=== PATIENT | male | born 1960 | race Caucasian/White ===

== ENCOUNTER 2017-12-25 08:14 | Inpatient (IN) | payer BC ==
[~2017-12-25] VITALS: Ht 172.7 cm; Wt 91.9 kg
[2017-12-25] MEDS ORDERED: SODIUM CHLORIDE 0.9% 1000ML 1,000 ML IV STA (08:40)
[2017-12-25] MEDS ORDERED: ONDANSETRON INJ 2 MG/ML 2 ML VIAL IV STA (08:45)
[2017-12-25] MEDS ORDERED: MoRPHine SULFATE 4 MG/ML 1 ML CARP\\VIAL IV STA (08:45)
[2017-12-25 09:07] LABS: BASO % 0.1 %; BASO ABS # 0.01 K/uL (0-0.2); EOS % 0.7 %; EOS ABS # 0.06 K/uL (0-0.5); HEMATOCRIT 43.4 % (42-52); IG# 0.02 K/uL (0.00-0.02); LYMPH % 16.4 %; LYMPH ABS # 1.43 K/uL (1.2-3.4); MEAN CELL VOLUME 96.2 fL (80-100); MEAN CORPUSCULAR HEMOGLOBIN 33.3 pg (25-34); MEAN CORPUSCULAR HGB CONC 34.6 g/dl (32-36); MEAN PLATELET VOLUME 9.5 fL (7.4-10.4); MONO % 9.6 %; MONO ABS # 0.84 K/uL (0.11-0.59); NEUT ABS # 6.38 K/uL (1.4-6.5); PLATELET COUNT 225 K/uL (130-400); RED CELL DISTRIBUTION WIDTH CV 13.4 % (11.5-14.5); RED CELL DISTRIBUTION WIDTH SD 47.1 fL (36.4-46.3); WHITE BLOOD COUNT 8.74 K/uL (4.8-10.8)
[2017-12-25] MEDS ORDERED: CEPH500C PO (09:07)
[2017-12-25] MEDS ORDERED: SULF800T23 PO (09:07)
--- NOTE | 2017-12-25 09:13 | DIAGNOSTIC IMAGING REPORT ---
L HAND MIN 3 VIEWS ROUTINE HISTORY: 57 years-old Male L hand pain acute left hand pain COMPARISON: None available TECHNIQUE: 3 views of the left hand FINDINGS: No acute fracture, dislocation or significant degenerative changes. Peripheral arterial calcifications are noted. Mild dorsal hand soft tissue swelling. IMPRESSION: Mild soft tissue swelling without fracture. The above report was generated using voice recognition software. It may contain grammatical, syntax or spelling errors. Electronically signed by: Fernando Curiel M.D. 12/25/2017 9:12 AM Dictated Date/Time: 12/25/2017 9:10 AM
[2017-12-25 09:23] LABS: CALCIUM 8.1 mg/dl (8.5-10.1); CREATININE 1.03 mg/dl (0.60-1.40); URIC ACID 5.1 mg/dl (2.6-7.2)
--- NOTE | 2017-12-25 09:27 | EMERGENCY ROOM VISIT NOTE ---
History First contact with patient: 08:27 Chief Complaint: SWELLING TO EXTREMITY Stated Complaint: LEFT HAND SWELL History of Present Illness The patient is a 57 year old male who presents to the Emergency Room via private vehicle with complaints of "left hand pain and swelling swelling". The patient notes that he began with left hand swelling on Friday. He states that he went to an [facility] doctor in [facility] and was put on Keflex on Friday, Bactrim yesterday. He notes no improvement in worsening. He states that the redness began about the left first MCP joint and is progressed up the hand to the wrist and down to the forearm. He denies any trauma or injury. He does subjectively report fevers and chills. No nausea, vomiting, shortness of breath, chest pain or abdominal pain. Review of Systems A complete 10-point Review of Systems was discussed with the patient, with pertinent positives and negatives listed in the History of Present Illness. All remaining Review of Systems questions can be considered negative unless otherwise specified. Past Medical/Surgical History Medical Problems: (1) Alcohol abuse (2) Gout (3) HLD (hyperlipidemia) (4) HTN (hypertension) (5) Obesity (BMI 30.0-34.9) Surgical Problems: (1) History of decompression of both ulnar nerves (2) History of right inguinal hernia repair (3) History of tonsillectomy and adenoidectomy Family History No pertinent. Social History Smoking Status: Never Smoker Patient lives locally. Current/Historical Medications Scheduled Cephalexin Monohydrate (Keflex), 500 MG PO TID Sulfa/Trimethoprim (Bactrim Ds 800MG/160MG), 1 TAB PO BID Scheduled PRN Indomethacin (Indomethacin), 50 MG PO TID PRN for xander Physical Exam Vital Signs Date Time Temp Pulse Resp B/P (MAP) Pulse Ox O2 Delivery O2 Flow Rate FiO2 12/25/17 10:08 79 18 155/97 97 Room Air 12/25/17 10:00 97 Room Air 12/25/17 09:43 79 18 166/110 98 Room Air 12/25/17 08:19 36.4 74 20 162/92 98 Room Air Physical Exam VITAL SIGNS - Vital signs and nursing notes were reviewed. Stable and afebrile. GENERAL -57-year-old male appearing his stated age who is in no acute distress. Communicates well with provider and answers questions appropriately. SKIN -the left first MCP joint skin extending to the distal tip of the finger and up the forearm does elicit erythema and edema. HEAD - NC/AT. LUNGS - Chest wall symmetric without accessory muscle use, intercostals retractions, or central cyanosis. Normal vesicular breath sounds CTA B/L. No wheezes, rales, or rhonchi appreciated. CARDIAC - RRR with S1/S2. No murmur, rubs, or gallops appreciated. EXTREMITIES - No clubbing or peripheral cyanosis. No pretibial edema present. Decreased range of motion about the left first MCP joint. There is tenderness to palpation of this region. No bony deformity or step-off. +5/5 strength noted in UE/LE bilaterally. NEUROLOGIC - Cranial nerves II through XII grossly intact. Sensory intact to light touch throughout. He is neurovascularly intact in left upper extremity. Medical Decision & Procedures ER Provider Diagnostic Interpretation: L HAND MIN 3 VIEWS ROUTINE HISTORY: 57 years-old Male L hand pain acute left hand pain COMPARISON: None available TECHNIQUE: 3 views of the left hand FINDINGS: No acute fracture, dislocation or significant degenerative changes. Peripheral arterial calcifications are noted. Mild dorsal hand soft tissue swelling. IMPRESSION: Mild soft tissue swelling without fracture. The above report was generated using voice recognition software. It may contain grammatical, syntax or spelling errors. Electronically signed by: Fernando Curiel M.D. 12/25/2017 9:12 AM Dictated Date/Time: 12/25/2017 9:10 AM [~ rep ct add3]] ORBITS FOR MRI HISTORY: 57 years-old Male to have MRI today for hand acute left hand swelling. Clearance study for MRI with possible intraorbital metallic foreign body COMPARISON: None available TECHNIQUE: 3 views of the orbits FINDINGS: Paranasal sinuses and mastoid air cells appear generally clear. No opaque foreign body of the orbits identified. No acute fracture identified. IMPRESSION: No opaque foreign body of the orbits identified. The above report was generated using voice recognition software. It may contain grammatical, syntax or spelling errors. Electronically signed by: Fernando Curiel M.D. 12/25/2017 11:46 AM Dictated Date/Time: 12/25/2017 11:45 AM Laboratory Results 12/25/17 08:50 Red Blood Count 4.51, Mean Corpuscular Volume 96.2, Mean Corpuscular Hemoglobin 33.3, Mean Corpuscular Hemoglobin Concent 34.6, Mean Platelet Volume 9.5, Neutrophils (%) (Auto) 73.0, Lymphocytes (%) (Auto) 16.4, Monocytes (%) (Auto) 9.6, Eosinophils (%) (Auto) 0.7, Basophils (%) (Auto) 0.1, Neutrophils # (Auto) 6.38, Lymphocytes # (Auto) 1.43, Monocytes # (Auto) 0.84, Eosinophils # (Auto) 0.06, Basophils # (Auto) 0.01 12/25/17 08:50 Test 12/25/17 08:50 White Blood Count 8.74 K/uL (4.8-10.8) Red Blood Count 4.51 M/uL (4.7-6.1) Hemoglobin 15.0 g/dL (14.0-18.0) Hematocrit 43.4 % (42-52) Mean Corpuscular Volume 96.2 fL (80-100) Mean Corpuscular Hemoglobin 33.3 pg (25-34) Mean Corpuscular Hemoglobin Concent 34.6 g/dl (32-36) Platelet Count 225 K/uL (130-400) Mean Platelet Volume 9.5 fL (7.4-10.4) Neutrophils (%) (Auto) 73.0 % Lymphocytes (%) (Auto) 16.4 % Monocytes (%) (Auto) 9.6 % Eosinophils (%) (Auto) 0.7 % Basophils (%) (Auto) 0.1 % Neutrophils # (Auto) 6.38 K/uL (1.4-6.5) Lymphocytes # (Auto) 1.43 K/uL (1.2-3.4) Monocytes # (Auto) 0.84 K/uL (0.11-0.59) Eosinophils # (Auto) 0.06 K/uL (0-0.5) Basophils # (Auto) 0.01 K/uL (0-0.2) RDW Standard Deviation 47.1 fL (36.4-46.3) RDW Coefficient of Variation 13.4 % (11.5-14.5) Immature Granulocyte % (Auto) 0.2 % Immature Granulocyte # (Auto) 0.02 K/uL (0.00-0.02) Erythrocyte Sedimentation Rate 22 mm/hr (0-14) Anion Gap 8.0 mmol/L (3-11) Est Creatinine Clear Calc Drug Dose 85.3 ml/min Estimated GFR () 92.4 Estimated GFR (Non- 79.7 BUN/Creatinine Ratio 11.3 (10-20) Lactic Acid Level 1.1 mmol/L (0.4-2.0) Uric Acid 5.1 mg/dl (2.6-7.2) Calcium Level 8.1 mg/dl (8.5-10.1) C-Reactive Protein 5.32 mg/dl (0-0.29) Medications Administered Medications (Trade) Dose Ordered Sig/New Route Start Time Stop Time Status Last Admin Dose Admin Sodium Chloride 1,000 ml @ 999 mls/hr Q1H1M STAT IV 12/25/17 08:40 12/25/17 09:53 DC 12/25/17 09:02 999 MLS/HR Morphine Sulfate (MoRPHine SULFATE INJ) 4 mg NOW STAT IV 12/25/17 08:45 12/25/17 08:46 DC 12/25/17 09:03 4 MG Ondansetron HCl (Zofran Inj) 4 mg NOW STAT IV 12/25/17 08:45 12/25/17 08:46 DC 12/25/17 09:02 4 MG Vancomycin HCl 1750 mg/Sodium Chloride 535 ml @ 200 mls/hr ONE STAT IV 12/25/17 09:54 12/25/17 12:34 DC 12/25/17 10:39 200 MLS/HR Ceftriaxone Sodium (Rocephin Inj) 1 gm NOW STAT IV 12/25/17 09:54 12/25/17 09:56 DC 12/25/17 10:08 1 GM Medical Decision Patient was seen and evaluated as above in room a 12. Review was performed of nursing notes and vital signs. After obtaining a thorough history and physical examination the above work up was performed. He presents to us today with hand pain. There is swelling. It is progressing up his hand and now into his wrist. There is concern for failed outpatient oral antibiotics with progressive cellulitis. IV access was established. Blood cultures obtained. Rocephin and vancomycin were ordered. X-ray reveals swelling. No fracture. No leukocytosis. Clinically there is concern and need for IV antibiotics. Case discussed with the attending physician and subsequently the hospitalist. I also discussed this with orthopedics who recommended MRI. MRI ordered. Patient was educated upon findings and in agreement with hospitalization. Case was discussed with the attending physician. In the evaluation and treatment of this patient the following differential diagnoses were entertained: Cellulitis, abscess, gout, among others Impression Primary Impression: Cellulitis of left hand Departure Information Dispostion Admitted as an inpatient Condition FAIR Referrals No Doctor, Assigned (PCP) Patient Instructions My [facility]
[2017-12-25] MEDS ORDERED: VANCOMYCIN IV 1,750 MG in SODIUM CHLORIDE 0.9% 500ML 500 ML IV STA (09:54)
[2017-12-25] MEDS ORDERED: CEFTRIAXONE SOD INJ 1 GM ADDVIAL IV STA (09:54)
[2017-12-25 10:00] VITALS: O2SAT 97; Ht 172.7 cm; Wt 91.9 kg
[2017-12-25] MEDS ORDERED: VANCOMYCIN CONSULT ACTIVE PRN ×2 (10:00→10:30)
[2017-12-25] MEDS ORDERED: ACETAMINOPHEN 325 MG TAB PO PRN (10:15)
[2017-12-25] MEDS ORDERED: INDO1CAP34 PO (10:22)
[2017-12-25] MEDS ORDERED: LORAZEPAM 2 MG/ML 1 ML VIAL IV PRN (10:30)
[2017-12-25] MEDS ORDERED: MoRPHine SULFATE 2 MG/ML CARP IV PRN (10:30)
[2017-12-25] MEDS ORDERED: IV FLUIDS COMPLETED PRN (11:30)
--- NOTE | 2017-12-25 11:48 | DIAGNOSTIC IMAGING REPORT ---
ORBITS FOR MRI HISTORY: 57 years-old Male to have MRI today for hand acute left hand swelling. Clearance study for MRI with possible intraorbital metallic foreign body COMPARISON: None available TECHNIQUE: 3 views of the orbits FINDINGS: Paranasal sinuses and mastoid air cells appear generally clear. No opaque foreign body of the orbits identified. No acute fracture identified. IMPRESSION: No opaque foreign body of the orbits identified. The above report was generated using voice recognition software. It may contain grammatical, syntax or spelling errors. Electronically signed by: Fernando Curiel M.D. 12/25/2017 11:46 AM Dictated Date/Time: 12/25/2017 11:45 AM
[2017-12-25 11:53] VITALS: BP 171/94; PULSE 79; TEMP 36.6; O2SAT 93
--- NOTE | 2017-12-25 11:54 | Orthopedic Consultation ---
Orthopedic Consultation Date of Consultation: Dec 25, 2017. Attending Physician: Reason for Consultation: Left hand cellulitis with question of second MP joint infection. History of Present Illness Patient is a 57-year-old white male known to our practice who states that on Friday he began having pain in his left hand mainly around the second MP joint. The pain began to increase and he went to [facility] as an outpatient. He was started on Keflex and as it continued to worsen and he went to the [place] emergency room of which she was then started on Bactrim as well. Neither of these antibiotics seem to be helping him as he continued to worsen. He states that the redness started to go up his wrist and into his forearm and he came over here to be seen. He states he is having difficulty moving the index finger because of pain in the joint. He states that he had chills last night but no nausea or vomiting. He denies any shortness of breath or chest pain prior to this visit. Past Medical/Surgical History Past medical history: Patient denies any history of hypertension ,diabetes mellitus, tuberculosis, hepatitis, COPD, rheumatic fever, dvt Past surgical history: Irrigation and debridement right hand in 2003, appendectomy, herniorrhaphy, ulnar nerve transposition Family History FH: CAD (coronary artery disease) FATHER, BROTHER, , Age:50's - 60 ( of [place]) FH: cancer FATHER, Social History Smoking Status: Never Smoker Allergies Coded Allergies: No Known Allergies (Verified , 12/25/17) Home Medications Scheduled Cephalexin Monohydrate (Keflex), 500 MG PO TID Sulfa/Trimethoprim (Bactrim Ds 800MG/160MG), 1 TAB PO BID Scheduled PRN Indomethacin (Indomethacin), 50 MG PO TID PRN for xander Current Inpatient Medications Current Inpatient Medications Medications (Trade) Dose Ordered Sig/New Route Start Time Stop Time Status Last Admin Dose Admin Vancomycin HCl 1750 mg/Sodium Chloride 535 ml @ 200 mls/hr ONE STAT IV 12/25/17 09:54 12/25/17 12:34 12/25/17 10:39 200 MLS/HR Acetaminophen (Tylenol Tab) 650 mg Q4H PRN PO 12/25/17 10:15 01/24/18 10:14 Ceftriaxone Sodium 1 gm/ Dextrose 50 ml @ 100 mls/hr Q24H IV 12/26/17 10:00 01/05/18 09:59 UNV Vancomycin HCl 1000 mg/Sodium Chloride 270 ml @ 125 mls/hr Q12 IV 12/25/17 21:00 01/04/18 20:59 UNV Vancomycin HCl (Consult) 1 ea UD PRN N/A 12/25/17 10:30 01/24/18 10:29 UNV Morphine Sulfate (MoRPHine SULFATE INJ) 2 mg Q4H PRN IV 12/25/17 10:30 01/08/18 10:29 UNV Lorazepam (Ativan Inj) 1 mg ONE PRN IV 12/25/17 10:30 UNV Miscellaneous (Iv Fluids Completed) 1 ea PRN PRN N/A 12/25/17 11:30 12/25/18 11:29 UNV Review of Systems No changes with his vision or his hearing the recent past. Denies lightheadedness, vertigo. Denies any flulike symptoms or colds in the recent past. Denies shortness of breath on exertion or at rest, denies chest pain, chest pressure, irregular heartbeat. Patient does have a family history of cardiac disease with a brother who at the age of 50 due to myocardial infarction. Father had a history of multiple MIs in the past as well. Denies hemoptysis, dyspnea, asthma ,bronchitis, tuberculosis. Denies any unusual nausea vomiting diarrhea, constipation, hematemesis, melena, hematochezia, hepatitis, GERD, peptic ulcer disease. No abdominal pain. Denies any history of unusual hematuria ,pyuria ,dysuria, or renal calculi. Denies history of frequency, urgency, frequent urinary tract infection, BPH. Denies history of CVA, TIA, seizure disorder. Physical Exam Date Time Temp Pulse Resp B/P (MAP) Pulse Ox O2 Delivery O2 Flow Rate FiO2 12/25/17 10:08 79 18 155/97 97 Room Air 12/25/17 10:00 97 Room Air 12/25/17 09:43 79 18 166/110 98 Room Air 12/25/17 08:19 36.4 74 20 162/92 98 Room Air On examination, the patient is a well-developed, well-nourished, white male who is alert and oriented 3 and in no acute distress, pleasant and cooperative. He is lying on the bed in his room and appears comfortable. Focusing the exam on his left lower extremity, he has a noted erythema over the dorsum of his hand. Less so over the fifth metacarpal area however it begins to increase as it crosses over to the first metacarpal. This erythema goes up to the wrist and is going into the dorsum of the forearm. He has good range of motion of his left elbow and left wrist without discomfort in either of these joints. When he flexes his wrist, he does have some discomfort around the second metacarpal area. He has moderate swelling of the second MPJ. Erythema does travel down into the index finger somewhat. He has no decreased sensation of the fingers at this time and has good capillary refill less than 2 seconds. He pretty much has full range of motion of his third through fifth fingers and his thumb. He has very limited range of motion in extension and flexion of the index finger due to pain in the MPJ. He is very tender on palpation over the second MPJ. I cannot appreciate any fluctuance in or around this area. Most of his pain is over the dorsum of the joint but he does have some pain on the volar aspect. No overt pain in the palm itself. Laboratory Results Last 24 Hours Test 12/25/17 08:50 White Blood Count 8.74 K/uL Red Blood Count 4.51 M/uL Hemoglobin 15.0 g/dL Hematocrit 43.4 % Mean Corpuscular Volume 96.2 fL Mean Corpuscular Hemoglobin 33.3 pg Mean Corpuscular Hemoglobin Concent 34.6 g/dl Platelet Count 225 K/uL Mean Platelet Volume 9.5 fL Neutrophils (%) (Auto) 73.0 % Lymphocytes (%) (Auto) 16.4 % Monocytes (%) (Auto) 9.6 % Eosinophils (%) (Auto) 0.7 % Basophils (%) (Auto) 0.1 % Neutrophils # (Auto) 6.38 K/uL Lymphocytes # (Auto) 1.43 K/uL Monocytes # (Auto) 0.84 K/uL Eosinophils # (Auto) 0.06 K/uL Basophils # (Auto) 0.01 K/uL RDW Standard Deviation 47.1 fL RDW Coefficient of Variation 13.4 % Immature Granulocyte % (Auto) 0.2 % Immature Granulocyte # (Auto) 0.02 K/uL Erythrocyte Sedimentation Rate 22 mm/hr Sodium Level 138 mmol/L Potassium Level 4.0 mmol/L Chloride Level 106 mmol/L Carbon Dioxide Level 23 mmol/L Anion Gap 8.0 mmol/L Blood Urea Nitrogen 12 mg/dl Creatinine 1.03 mg/dl Est Creatinine Clear Calc Drug Dose 85.3 ml/min Estimated GFR () 92.4 Estimated GFR (Non- 79.7 BUN/Creatinine Ratio 11.3 Random Glucose 100 mg/dl Lactic Acid Level 1.1 mmol/L Uric Acid 5.1 mg/dl Calcium Level 8.1 mg/dl C-Reactive Protein 5.32 mg/dl Assessment & Plan Assessment: Cellulitis left hand with question of septic left second MPJ Plan: Patient will be admitted by [facility] service. Antibiotics will be continued 24 hours and an MRI has been ordered to rule out septic joint in the second left MPJ. I will tentatively add him onto the OR schedule for tomorrow if irrigation debridement is warranted. Patient understands that this might need to be washed out and states that he just wants to get it taken care of. He has had a previous I&D of the right hand and understands what comes with that. Dr. Hayes is aware of the case and will follow accordingly.
--- NOTE | 2017-12-25 12:31 | History and Physical ---
History & Physical Date & Time of Service: Dec 25, 2017 at 11:07 Chief Complaint: Left Hand Swell Primary Care Physician: No Doctor, Assigned History of Present Illness Source: patient, spouse This is a 57 year old Male with PMH of HLD, HTN, GOUT, ETOH Abuse who presents to [facility] secondary to L hand/finger pain, redness and increased swelling x 3 days. Symptoms started on Friday12/22/17 with redness to Left 2nd MCP joint, pain and warmth. Was unable to get into PCP therefore took indomethacin, "thought it was gout," but this did not help. On 12/23/17 saw PCP and dx with cellulitis, placed on Keflex. WBC at this time was 13.3. Due to worsening of symptoms he presented to [place] ED for further evaluation on 12/24/17. At that time WBC 11.2, left hand x-ray performed negative for acute abnormality. He was additionally placed on Bactrim for MRSA coverage and discharged home. Today he notes increased swelling, increased erythema, warmth, pain, decreased range of motion of left second digit. He has taken 6 doses of Keflex 500 mg, 2 doses of double strength Bactrim. He has not taking anything [id number] for pain except prescribed indomethacin with no relief. Current pain rated 6 out of 10; however pain this morning was 9/10. He admits to chills last evening but no documented fever and nausea. Currently denies sweats, dizziness, lightheadedness, chest pain, shortness of breath, palpitations, nausea, vomiting , emesis, diarrhea, change in bowel or bladder habits. In ED patient's WBC was noted to be normal at 8.7, H&H 15 and 43.4 respectively, uric acid 5.1, ESR 22, CRP 5.32, BUN 12, creatinine 1.3, sodium 138, potassium 4.0. Left upper extremity hand x-ray revealed soft tissue swelling. He is being admitted secondary to failed outpatient therapy as well as further evaluation and treatment of left hand cellulitis. Past Medical/Surgical History Medical Problems: (1) Alcohol abuse Status: Chronic (2) Gout Status: Chronic (3) HLD (hyperlipidemia) Status: Chronic (4) HTN (hypertension) Status: Chronic (5) Obesity (BMI 30.0-34.9) Status: Chronic Surgical Problems: (1) History of decompression of both ulnar nerves Status: Chronic (2) History of right inguinal hernia repair Status: Chronic (3) History of tonsillectomy and adenoidectomy Status: Chronic Family History FH: CAD (coronary artery disease) FATHER, BROTHER, , Age:50's - 60 ( of [place]) FH: cancer FATHER, Social History Smoking Status: Never Smoker Smokeless Tobacco Use: No Alcohol Use: heavy (5-6 12 oz bottles of marck lite daily) Drug Use: none Marital Status: Housing status: lives with significant other 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) Immunizations History of Influenza Vaccine: Yes Influenza Vaccine Date: Jan 16, 2015 History of Tetanus Vaccine?: Yes Tetanus Immunization Date: Jan 05, 2004 History of Pneumococcal: No History of Hepatitis B Vaccine: Unknown Allergies Coded Allergies: No Known Allergies (Verified , 12/25/17) Home Medications Scheduled Cephalexin Monohydrate (Keflex), 500 MG PO TID Sulfa/Trimethoprim (Bactrim Ds 800MG/160MG), 1 TAB PO BID Scheduled PRN Indomethacin (Indomethacin), 50 MG PO TID PRN for xadner Physical Exam Vital Signs Date Time Temp Pulse Resp B/P (MAP) Pulse Ox O2 Delivery O2 Flow Rate FiO2 12/25/17 10:08 79 18 155/97 97 Room Air 12/25/17 10:00 97 Room Air 12/25/17 09:43 79 18 166/110 98 Room Air 12/25/17 08:19 36.4 74 20 162/92 98 Room Air General Appearance: WD/WN (Male, Sitting up in bed, conversing at ease), no apparent distress Head: normocephalic, atraumatic Eyes: normal inspection, PERRL, EOMI, sclerae normal ENT: normal ENT inspection, hearing grossly normal, pharynx normal, + pertinent finding (Mucous membranes moist) Neck: supple, no adenopathy, thyroid normal, no JVD Respiratory/Chest: chest non-tender, lungs clear, normal breath sounds, no respiratory distress, no accessory muscle use Cardiovascular: regular rate, rhythm, no edema, no gallop, no murmur, normal peripheral pulses Abdomen/GI: normal bowel sounds, non tender, soft, no organomegaly Back: normal inspection, no muscle spasm, normal range of motion Extremities/Musculoskelatal: + pertinent finding (Positive erythema and edema on dorsal aspect of left second MCP extending proximally above wrist, well- demarcated, good R OM of left second DIP and PIP; however reduced ROM significantly to MCP. Good AROM of left wrist, no proximal lymphadenopathy, no obvious point of insertion/abraison) Neurologic/Psych: alert, normal mood/affect, oriented x 3 Skin: normal color, warm/dry Lymphatic: no adenopathy Diagnostics Laboratory Results Results Past 24 Hours Test 12/25/17 08:50 Range/Units White Blood Count 8.74 4.8-10.8 K/uL Red Blood Count 4.51 4.7-6.1 M/uL Hemoglobin 15.0 14.0-18.0 g/dL Hematocrit 43.4 42-52 % Mean Corpuscular Volume 96.2 80-100 fL Mean Corpuscular Hemoglobin 33.3 25-34 pg Mean Corpuscular Hemoglobin Concent 34.6 32-36 g/dl Platelet Count 225 130-400 K/uL Mean Platelet Volume 9.5 7.4-10.4 fL Neutrophils (%) (Auto) 73.0 % Lymphocytes (%) (Auto) 16.4 % Monocytes (%) (Auto) 9.6 % Eosinophils (%) (Auto) 0.7 % Basophils (%) (Auto) 0.1 % Neutrophils # (Auto) 6.38 1.4-6.5 K/uL Lymphocytes # (Auto) 1.43 1.2-3.4 K/uL Monocytes # (Auto) 0.84 0.11-0.59 K/uL Eosinophils # (Auto) 0.06 0-0.5 K/uL Basophils # (Auto) 0.01 0-0.2 K/uL RDW Standard Deviation 47.1 36.4-46.3 fL RDW Coefficient of Variation 13.4 11.5-14.5 % Immature Granulocyte % (Auto) 0.2 % Immature Granulocyte # (Auto) 0.02 0.00-0.02 K/uL Erythrocyte Sedimentation Rate 22 0-14 mm/hr Sodium Level 138 136-145 mmol/L Potassium Level 4.0 3.5-5.1 mmol/L Chloride Level 106 98-107 mmol/L Carbon Dioxide Level 23 21-32 mmol/L Anion Gap 8.0 3-11 mmol/L Blood Urea Nitrogen 12 7-18 mg/dl Creatinine 1.03 0.60-1.40 mg/dl Est Creatinine Clear Calc Drug Dose 85.3 ml/min Estimated GFR () 92.4 Estimated GFR (Non- 79.7 BUN/Creatinine Ratio 11.3 10-20 Random Glucose 100 70-99 mg/dl Lactic Acid Level 1.1 0.4-2.0 mmol/L Uric Acid 5.1 2.6-7.2 mg/dl Calcium Level 8.1 8.5-10.1 mg/dl C-Reactive Protein 5.32 0-0.29 mg/dl Microbiology Results 12/25/17 Blood Culture, Received Pending 12/25/17 Blood Culture, Received Pending Diagnostic Radiology L hand xray FINDINGS: No acute fracture, dislocation or significant degenerative changes. Peripheral arterial calcifications are noted. Mild dorsal hand soft tissue swelling. IMPRESSION: Mild soft tissue swelling without fracture. Normal EKG Impression Assessment and Plan This is a 57 year old Male with PMH of HLD, HTN, GOUT, ETOH Abuse who presents to [facility] secondary to L hand/finger pain, redness and increased swelling x 3 days. Symptoms started on Friday12/22/17 with redness to Left 2nd MCP joint, pain and warmth. Seen in PCP office and ED [place] following day. 12/23/17 WBC 13.3 and on 12/24/17 was 11.2. Started on Keflex and Bactrim therapy. He has had 6 doses of Keflex 500 mg and 2 doses of Bactrim double strength with continued worsening of symptoms. In ED patient's WBC was noted to be normal at 8.7, H&H 15 and 43.4 respectively, uric acid 5.1, BUN 12, creatinine 1.3, sodium 138, potassium 4.0. Left upper extremity hand x-ray revealed soft tissue swelling. He is being admitted secondary to failed outpatient therapy as well as further evaluation and treatment of left hand cellulitis. Left hand/second MCP cellulitis with possible joint involvement Elevated inflammatory markers -admit to med/surg -Orthopedic Surgery Dr. Hayes consulted, spoke with JANELLE Churchill who recommends MRI L hand/second MCP -Keep NPO pending MRI due to possible surgical intervention -Continue IV Vanco and Rocephin for MRSA/Strep coverage -repeat CBC, BMP in a.m. -IVF NS 120cc/hr while NPO -Morphine 2mg IV q4hr prn pain HTN -bp elevated on admission secondary to pain -does not take any oral antihypertensives in outpatient setting -monitor HLD Last Chol Panel total chol 240, LDL 15, HDL 81, Trig 114 -dietary modifications, not on any oral meds in outpatient setting Gout -uric acid 5.1 -hx of gout attacks in R great toe -prn indomethacin EtOH abuse -AWSS scale per nursing -IV ativan 1g prn for withdrawl symptoms ATTENDING ADDENDUM care coordinated with STEPHON Chicas please refer to her notes for full details, I agree with her notes patient seen and examined, records reviewed by myself as well on exam, patient seen resting in bed, not in distress states left hand pain is not adequately covered by Morphine at this time denies pain on the wrist, forearm, elbow no other symptoms VS noted and reviewed oriented x 3 , not in distress, speaks in sentences with no effort nor accessory muscle use normal rate, regular rhythm, no murmurs clear breath sounds bilaterally non distended, soft, nontender left hand: (+) mild erythema, moderate tenderness and edema on the 2nd mcp joint and dorsal aspect , mild warmth on the left wrist left forearm: no erythema/warmth/tenderness no bipedal edema, erythema, warmth no neuro deficits WBC 8.7 Hg 15 Crea 1.03 ASSESSMENT/PLAN> LEFT HAND CELLULITIS, POSSIBLE SEPTIC ARTHRITIS - Ortho consulted MRI hand pending - possible component of gout? - for now, will cover with Vanco and Zosyn IV fluids avoid steroids at this time - NPO after midnight for possible surgical intervention in AM ALCOHOLISM - patient reports he drinks average of 5beers/day - will start alcohol withdrawal protocol including gabapentin taper Ativan as needed HYPERTENSION Blood pressure elevated likely secondary to pain We will order as needed clonidine other diagnoses and plan of care as per STEPHON Garcia'kenia notes Nam Valle MD Advanced Directives Existing Living Will: No Existing Power of Staff Training And Development Manager: No Resuscitation Status Full Code VTE Prophylaxis Will order VTE Prophylaxis: No Reason for no VTE drug order: Treatment not indicated, Contraindicated ( possible surgical intervention, VTE no indicated for this particular patient) Reason no Mechanical VTE Order: Treatment not indicated
[2017-12-25] MEDS ORDERED: MoRPHine SULFATE 4 MG/ML 1 ML CARP\\VIAL IV PRN (13:15)
[2017-12-25] MEDS ORDERED: MoRPHine SULFATE 4 MG/ML 1 ML CARP\\VIAL ONE (13:21)
--- NOTE | 2017-12-25 13:31 | Pharmacy Progress Note ---
Pharmacy Abx Initial Consult Date of Service Dec 25, 2017. Pharmacy Dosing Scope Date of Consult: 12/25/17 Consultation requested by: Marry Chicas PA-C Pharmacy is consulted to initiate Vancomycin IV dosing therapy, order appropriate labs and adjust drug dose/frequency. Subjective The patient is a 57 year old male admitted on Dec 25, 2017 at 10:18. Objective Height (Feet): 5 Height (Inches): 8.00 Weight (Kilograms): 91.900 Vital Signs (Past 12Hrs) Vital Signs Past 12 Hours Date Time Temp Pulse Resp B/P (MAP) Pulse Ox O2 Delivery O2 Flow Rate FiO2 12/25/17 11:53 36.6 79 19 171/94 (119) 93 Room Air 12/25/17 11:50 Room Air 12/25/17 10:08 79 18 155/97 97 Room Air 12/25/17 10:00 97 Room Air 12/25/17 09:43 79 18 166/110 98 Room Air 12/25/17 08:19 36.4 74 20 162/92 98 Room Air Lab Results (24Hrs) Laboratory Tests (24 Hours) Test 12/25/17 08:50 C-Reactive Protein 5.32 mg/dl (0-0.29) H Erythrocyte Sedimentation Rate 22 mm/hr (0-14) H Lactic Acid Level 1.1 mmol/L (0.4-2.0) White Blood Count 8.74 K/uL (4.8-10.8) Red Blood Count 4.51 M/uL (4.7-6.1) L Hemoglobin 15.0 g/dL (14.0-18.0) Hematocrit 43.4 % (42-52) Mean Corpuscular Volume 96.2 fL (80-100) Mean Corpuscular Hemoglobin 33.3 pg (25-34) Mean Corpuscular Hemoglobin Concent 34.6 g/dl (32-36) Platelet Count 225 K/uL (130-400) Mean Platelet Volume 9.5 fL (7.4-10.4) Neutrophils (%) (Auto) 73.0 % Lymphocytes (%) (Auto) 16.4 % Monocytes (%) (Auto) 9.6 % Eosinophils (%) (Auto) 0.7 % Basophils (%) (Auto) 0.1 % Neutrophils # (Auto) 6.38 K/uL (1.4-6.5) Lymphocytes # (Auto) 1.43 K/uL (1.2-3.4) Monocytes # (Auto) 0.84 K/uL (0.11-0.59) H Eosinophils # (Auto) 0.06 K/uL (0-0.5) Basophils # (Auto) 0.01 K/uL (0-0.2) Micro Results Date/Time Source Procedure Growth Status 12/25/17 08:50 Blood Blood Culture Pending Received 12/25/17 08:50 Blood Blood Culture Pending Received Risk Factors for Resistance * Antimicrobial use within the last 90 days (Keflex and Bactrim DS from visit from [facility] ED on 12/24) Assessment & Plan Assessment 57 year old male admitted for SSTI of the left hand/finger with possible joint involvement Plan Vancomycin for treatment of SSTI Vancomycin IV * Loading dose: 1750 mg (~19 mg/kg) in ED * Maintenance dose: 1250 mg IV (~14 mg/kg) every 12 hours * Estimated PK parameters: ke: 0.075 hr-1, T1/2: ~9hrs * Goal trough level : 15 to 20 mcg/mL * Trough level ordered for 12/26/17 before 2000 dose * Scheduled first maintenance dose a couple hours early since loading dose was only ~19mg/kg. Pharmacy will continue to follow and will adjust dose/frequency as necessary. Thank you.
[2017-12-25] MEDS ORDERED: SODIUM CHLORIDE 0.9% 1000ML 1,000 ML IV SCH (14:00)
--- NOTE | 2017-12-25 14:01 | DIAGNOSTIC IMAGING REPORT ---
CHEST ONE VIEW PORTABLE CLINICAL HISTORY: 57 years-old Male presenting with pre op. TECHNIQUE: Portable upright AP view of the chest was obtained. COMPARISON: None. FINDINGS: Cardiomediastinal silhouette normal. No focal opacity. No large effusion or pneumothorax. Osseous structures normal. Upper abdomen normal. IMPRESSION: 1. No acute cardiopulmonary disease. Electronically signed by: Ad Camacho M.D. 12/25/2017 2:00 PM Dictated Date/Time: 12/25/2017 1:59 PM
[2017-12-25 15:30] VITALS: O2SAT 93
[2017-12-25] MEDS ORDERED: PIPERACILL/TAZOBAC CONSULT ACTIVE PRN (15:37)
[2017-12-25 15:41] VITALS: BP 159/103; PULSE 71; TEMP 36.8; O2SAT 97
[2017-12-25] MEDS: SODIUM CHLORIDE 0.9% 1000ML 1,000 ML IV SCH (15:49)
[2017-12-25] MEDS: HYDROmorphone INJ 0.5 MG/0.5 ML SYR IV PRN ×2 (15:50→22:45)
[2017-12-25] MEDS ORDERED: PIPERACILL/TAZOBAC IV 3.375 GM in D5W 100 ML IV ONE (16:00)
[2017-12-25] MEDS ORDERED: GABAPENTIN 600 MG TAB PO SCH (17:00)
[2017-12-25] MEDS ORDERED: CLONIDINE HCL 0.1 MG TAB PO PRN (17:00)
[2017-12-25] MEDS ORDERED: THIAMINE HCL 100 MG TAB PO ONE (17:15)
[2017-12-25] MEDS: GABAPENTIN 1200MG LOADING DOSE PO SCH (17:31)
--- NOTE | 2017-12-25 19:06 | Anesthesiology Progress Note ---
Anesthesia Progress Note Date of Service Dec 25, 2017. Progress Notes This is a 57 y/o w obese male presenting w/ an infected left hand for an I & D of the same. PMHx is sig. for HTN, Hyperlipidemia,ETOH abuse and Gout.Discussed anesthesia w/pt,Risks vs Benefits , all questions answered. ASA 3
[2017-12-25] MEDS: PIPERACILL/TAZOBAC IV 3.375 GM in D5W 100ML IV SCH (20:29)
[2017-12-25] MEDS: VANCOMYCIN IV 1,250 MG in SODIUM CHLORIDE 0.9% 250ML 250 ML IV SCH (20:29)
[2017-12-25] MEDS: LORAZEPAM INJ 0.5 MG in SYRINGE 0.25 ML IV PRN (20:34)
--- NOTE | 2017-12-25 21:55 | DIAGNOSTIC IMAGING REPORT ---
MRI OF THE LEFT HAND WITHOUT A WITH CONTRAST CLINICAL HISTORY: L 2nd MCP joint edema, erythema. COMPARISON STUDY: Conventional radiographic study dated 12/25/2017 FINDINGS: Imaging was performed in the sagittal, axial, and coronal planes, before and after the administration of 9 cc of intravenous Gadavist. There are no areas of marrow edema to indicate osteomyelitis. There are no abnormal soft tissue masses. There is a small joint effusion at the level of the second metacarpal phalangeal joint. There is mild surrounding soft tissue edema. Postcontrast images reveal prominent synovial enhancement at this level. There are no fluid collections to indicate a drainable abscess. IMPRESSION: 1. No evidence of osteomyelitis 2. No evidence of a drainable abscess 3. Small joint effusion at the level of the second metacarpal phalangeal joint. Surrounding soft tissue edema. Extensive postcontrast synovial enhancement at this level. Given the MRI appearance and clinical presentation, the findings are suspicious for a septic arthritis. It should be noted that a noninfectious monoarthropathy could potentially appear similar. Electronically signed by: Timur Farah M.D. 12/25/2017 9:54 PM Dictated Date/Time: 12/25/2017 9:44 PM
[2017-12-25 23:11] VITALS: BP 148/90; PULSE 93; TEMP 36.5; O2SAT 95
[2017-12-25] MEDS: GABAPENTIN 600MG Q6H DOSE PO SCH (23:56)
[2017-12-26] VITALS (8 sets, daily range): BP systolic 108–150; BP diastolic 67–94; PULSE 56–108; TEMP 34.7–37.5; O2SAT 16–97
[2017-12-26] MEDS: SODIUM CHLORIDE 0.9% 1000ML 1,000 ML IV SCH ×2 (04:16→23:57)
[2017-12-26] MEDS: PIPERACILL/TAZOBAC IV 3.375 GM in D5W 100ML IV SCH ×3 (04:17→20:34)
[2017-12-26] MEDS: HYDROmorphone INJ 0.5 MG/0.5 ML SYR IV PRN ×3 (04:18→13:43)
[2017-12-26] MEDS: GABAPENTIN 600MG Q6H DOSE PO SCH (05:48)
[2017-12-26] MEDS: VANCOMYCIN IV 1,250 MG in SODIUM CHLORIDE 0.9% 250ML 250 ML IV SCH ×2 (07:42→21:49)
[2017-12-26 08:08] LABS: BASO % 0.1 %; BASO ABS # 0.01 K/uL (0-0.2); EOS % 1.5 %; HEMATOCRIT 41.2 % (42-52); HEMOGLOBIN 14.2 g/dL (14.0-18.0); IG# 0.02 K/uL (0.00-0.02); LYMPH % 18.8 %; LYMPH ABS # 1.28 K/uL (1.2-3.4); MEAN CELL VOLUME 97.4 fL (80-100); MEAN CORPUSCULAR HEMOGLOBIN 33.6 pg (25-34); MEAN CORPUSCULAR HGB CONC 34.5 g/dl (32-36); MEAN PLATELET VOLUME 9.4 fL (7.4-10.4); MONO % 9.4 %; MONO ABS # 0.64 K/uL (0.11-0.59); NEUT % 69.9 %; NEUT ABS # 4.76 K/uL (1.4-6.5); PLATELET COUNT 219 K/uL (130-400); RED CELL DISTRIBUTION WIDTH CV 13.4 % (11.5-14.5); RED CELL DISTRIBUTION WIDTH SD 47.9 fL (36.4-46.3); WHITE BLOOD COUNT 6.81 K/uL (4.8-10.8)
[2017-12-26 08:31] LABS: CALCIUM 8.4 mg/dl (8.5-10.1); CREATININE 0.98 mg/dl (0.60-1.40); POTASSIUM 3.8 mmol/L (3.5-5.1)
[2017-12-26] MEDS ORDERED: CEFTRIAXONE SOD INJ 1 GM in DEXTROSE 5% ADD-VANTAGE 50ML 50 ML IV SCH (10:00)
--- NOTE | 2017-12-26 10:42 | Hospitalist Progress Note ---
Hospitalist Progress Note Date of Service Dec 26, 2017. (Marry Chicas PA-C) Subjective Pt evaluation today including: conversation w/ patient, conversation w/ family Patient was seen and evaluated at bedside in room 384, at bedside. Left hand redness, warmth, swelling much improved. Still with pain at left second MCP dorsally, as well as ventrally extending into palm. Currently pain 4 /10. Pain medications are controlling pain. Denies fever, chills, sweats, chest pain, shortness of breath, nausea, vomiting, diarrhea. He is urinating without difficulty. He is currently n.p.o. and is planned for orthopedic intervention at noon. No nursing concerns reported. (Marry Chicas PA-C) Medications Medications (Trade) Dose Ordered Sig/New Route Start Time Stop Time Status Last Admin Dose Admin Vancomycin HCl 1250 mg/Sodium Chloride 275 ml @ 125 mls/hr Q12H IV 12/25/17 20:00 01/04/18 19:59 12/26/17 07:42 125 MLS/HR Sodium Chloride 1,000 ml @ 100 mls/hr Q10H IV 12/25/17 14:00 12/25/17 14:21 DC 12/25/17 13:45 100 MLS/HR Lorazepam 0.5 mg/ Syringe 0.5 ml @ 0.5 mls/min Q4H PRN IV 12/25/17 13:15 01/24/18 13:14 12/25/17 20:34 0.5 MLS/MIN Morphine Sulfate (MoRPHine SULFATE INJ) 4 mg STK-MED ONCE .ROUTE 12/25/17 13:21 12/25/17 13:22 DC 12/25/17 13:23 4 MG Hydromorphone HCl (Dilaudid Inj) 0.5 mg Q4H PRN IV 12/25/17 15:30 01/08/18 15:29 12/26/17 08:46 0.5 MG Sodium Chloride 1,000 ml @ 80 mls/hr [id number] IV 12/25/17 15:30 01/24/18 15:29 12/26/17 04:16 80 MLS/HR Piperacillin Sod/ Tazobactam Sod 3.375 gm/Dextrose 115 ml @ 230 mls/hr NOW ONCE IV 12/25/17 16:00 12/25/17 16:29 DC 12/25/17 16:53 230 MLS/HR Piperacillin Sod/ Tazobactam Sod 3.375 gm/Dextrose 115 ml @ 28.75 mls/ hr Q8H IV 12/25/17 20:00 01/04/18 15:59 12/26/17 04:17 28.75 MLS/HR Thiamine HCl (Vitamin B-1 Tab) 100 mg ONE ONCE PO 12/25/17 17:15 12/25/17 17:16 DC 12/25/17 17:31 100 MG Gabapentin (Neurontin Tab) 1,200 mg TODAY@1715 PO 12/25/17 17:15 01/24/18 17:14 12/25/17 17:31 1,200 MG Gabapentin (Neurontin Tab) 600 mg Q6H PO 12/26/17 00:00 12/26/17 06:01 DC 12/26/17 05:48 600 MG (Maryr Chicas PA-C) Objective Vital Signs Date Time Temp Pulse Resp B/P (MAP) Pulse Ox O2 Delivery O2 Flow Rate FiO2 12/26/17 07:38 36.5 93 18 144/94 (111) 95 Room Air 12/26/17 07:30 Room Air 12/25/17 23:50 Room Air 12/25/17 23:11 36.5 93 17 148/90 (109) 95 Room Air 12/25/17 15:41 36.8 71 18 159/103 (121) 97 Room Air 12/25/17 15:30 93 Room Air 12/25/17 11:53 36.6 79 19 171/94 (119) 93 Room Air 12/25/17 11:50 Room Air (Marry Chicas PA-C) Physical Exam Notes: Gen: WD/WN, Male, Sitting up in bed, NAD, A&O x3 HEENT: Normocephalic, atraumatic, conjunctivae moist, sclerae anicteric, mucous membranes moist. Erythematous papules noted lateral side of left nare Lung: Clear to Auscultation bilaterally, no wheezes/rales/rhonchi Heart: Regular rate, regular rhythm, no murmurs, rubs, or gallops Abdomen: Soft, NT, Distended secondary to obesity, +BS x 4 Extremities: No lower extremity edema, left second MCP with significant decrease AROM and PROM secondary to swelling and pain Skin: Warm, no rash, negative turgor. L hand edema at the left second MCP, dorsally as well as extending ventrally into palm. Tender to palpation. Erythema significantly improved. No proximal adenopathy noted. (Marry Chicas PA-C) Laboratory Results Item Value Date Time Sodium Level 139 mmol/L 12/26/17 0748 Potassium Level 3.8 mmol/L 12/26/17 0748 Chloride Level 105 mmol/L 12/26/17 0748 Carbon Dioxide Level 26 mmol/L 12/26/17 0748 Creatinine 0.98 mg/dl 12/26/17 0748 Blood Urea Nitrogen 10 mg/dl 12/26/17 0748 Random Glucose 96 mg/dl 12/26/17 0748 White Blood Count 6.81 K/uL 12/26/17 0748 Hemoglobin 14.2 g/dL 12/26/17 0748 Hematocrit 41.2 % L 12/26/17 0748 Platelet Count 219 K/uL 12/26/17 0748 (Marry Chicas, STEPHON-C) Diagnostic Results MRI L hand: IMPRESSION: 1. No evidence of osteomyelitis 2. No evidence of a drainable abscess 3. Small joint effusion at the level of the second metacarpal phalangeal joint. Surrounding soft tissue edema. Extensive postcontrast synovial enhancement at this level. Given the MRI appearance and clinical presentation, the findings are suspicious for a septic arthritis. It should be noted that a noninfectious monoarthropathy could potentially appear similar. (Marry Chicas, YAAC) Assessment and Plan This is a 57 year old Male with PMH of HLD, HTN, GOUT, ETOH Abuse who presents to [facility] secondary to L hand/finger pain, redness and increased swelling x 3 days. Symptoms started on Friday12/22/17 with redness to Left 2nd MCP joint, pain and warmth. Seen in PCP office and ED [place] following day. 12/23/17 WBC 13.3 and on 12/24/17 was 11.2. Started on Keflex and Bactrim therapy. He has had 6 doses of Keflex 500 mg and 2 doses of Bactrim double strength with continued worsening of symptoms. In ED patient's WBC was noted to be normal at 8.7, H&H 15 and 43.4 respectively, uric acid 5.1, BUN 12, creatinine 1.3, sodium 138, potassium 4.0. Left upper extremity hand x-ray revealed soft tissue swelling. He is being admitted secondary to failed outpatient therapy as well as further evaluation and treatment of left hand cellulitis. Left hand/second MCP cellulitis with possible joint involvement Elevated inflammatory markers Septic Arthritis vs Inflammatory arthropathy -MRI reviewed -patient to undergo orthopedic intervention today by Dr. Hayes -Continue NPO, IVF -Continue IV Vanco and Zosyn, he is responding to antibiotics -repeat CBC, BMP, ESR, CRP in a.m. -Dilaudid 0.5mg q4 hr for pain control HTN -bp elevated most likely secondary to pain -does not take any oral antihypertensives in outpatient setting -Clonidine ordered PRN SBP >160 HLD Last Chol Panel total chol 240, LDL 15, HDL 81, Trig 114 -dietary modifications, not on any oral meds in outpatient setting Gout -uric acid 5.1 -hx of gout attacks in R great toe -prn indomethacin EtOH abuse -AWSS scale per nursing -IV ativan 1g prn for withdrawl symptoms -gabapentin taper per protocol -on thiamine -no s/sx of withdrawl (Marry Chicas PA-C) ATTENDING ADDENDUM patient seen and examined chart reviewed care coordinated with STEPHON Chicas agree with assessment and plan delayed entry date of service as noted above care coordinated with STEPHON Mata please refer to her notes for full details, I agree with her notes patient seen and examined, records reviewed by myself as well on exam, patient seen sleeping but easily rousable states he feels improved left hand pain and swelling improved no other symptoms VS noted and reviewed oriented x2, not in distress, speaks in sentences with no effort nor accessory muscle use normal rate, regular rhythm, no murmurs clear breath sounds bilaterally non distended, soft, nontender no bipedal edema, erythema, warmth no neuro deficits Hg 14 Crea 0.98 ASSESSMENT/PLAN> LEFT HAND CELLULITIS, POSSIBLE MCP SEPTIC ARTHRITIS improving awaiting OR continue Vanc and Zosyn ALCOHOLISM no signs of overt alcohol withdrawal monitor other diagnoses and plan of care as per STEPHON Valle MD (Nam Valle MD)
--- NOTE | 2017-12-26 11:22 | History & Physical Bridge Note ---
H&P Re-Evaluation Bridge Note: I have examined the patient, reviewed the History & Physical and in the interval since the performance of the History & Physical I have noted the following changes of clinical significance: No changes noted
[2017-12-26] MEDS: LORAZEPAM INJ 0.5 MG in SYRINGE 0.25 ML IV PRN (13:42)
[2017-12-26] MEDS: GABAPENTIN 600MG Q8H DOSE PO SCH (14:17)
[2017-12-26] MEDS ORDERED: BUPIVACAINE 0.5 % 5 MG/1 ML PF 10ML VIAL ONE (16:39)
[2017-12-26] MEDS ORDERED: BACITRACIN 50000 UNIT VIAL ONE (16:40)
[2017-12-26] MEDS ORDERED: PROPOFOL IV EMULSION 10 MG/ML 20 ML VIAL ONE ×2 (16:52→18:03)
[2017-12-26] MEDS ORDERED: MIDAZOLAM HCL 1 MG/ML 2ML VIAL ONE ×2 (16:52→17:27)
[2017-12-26] MEDS ORDERED: FENTANYL CITRATE INJ 50 MCG/1 ML 2 ML VIAL ONE ×3 (16:52→18:41)
[2017-12-26] MEDS ORDERED: LIDOCAINE HCL 2% 2 ML VIAL (20MG/ML) ONE (16:52)
[2017-12-26] MEDS ORDERED: ONDANSETRON INJ 2 MG/ML 2 ML VIAL ONE (16:52)
[2017-12-26] MEDS ORDERED: LACTATED RINGER'S 1000ML 1,000 ML IV SCH (17:00)
[2017-12-26] MEDS ORDERED: NURSING VERBAL MED ORDER ONE ×2 (17:15→22:00)
[2017-12-26] MEDS ORDERED: KETAMINE HCL INJ 50 MG/ML 10 ML VIAL ONE (17:36)
[2017-12-26] MEDS ORDERED: LABETALOL HCL IV 5 MG/ML 20ML ONE (18:03)
[2017-12-26] MEDS ORDERED: ONDANSETRON INJ 2 MG/ML 2 ML VIAL IV PRN ×2 (18:45→19:00)
--- NOTE | 2017-12-26 18:46 | [facility] Post Operative Brief Note ---
Immediate Operative Summary Operative Date Dec 26, 2017. 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 El Hayes Operating Room Specialist Surgeon(s) none Estimated Blood Loss 2 cc Findings Consistent with Post-Op Diagnosis Specimens Culture #1 Left 2nd metacarpophalangeal joint: gram stain, culture and sensitivity, aerobic/anaerobic Drains 1/4" iodoform gauze Anesthesia Type MAC (w/ local) Complication(s) none Disposition Accompanied Pt To Recover: no Disposition: Recovery Room / PACU
[2017-12-26] MEDS ORDERED: HYDROmorphone INJ 2 MG/ML SYR/VIAL ONE (18:52)
[2017-12-26] MEDS ORDERED: EpHEDrine SULFATE INJ 50 MG/ML AMP IV PRN (19:00)
[2017-12-26] MEDS ORDERED: HYDROmorphone INJ 1 MG/ML SYR IV PRN (19:00)
[2017-12-26] MEDS ORDERED: ATROPINE SULFATE 0.1 MG/ML 5ML SYR IV PRN (19:00)
[2017-12-26] MEDS ORDERED: FENTANYL CITRATE INJ 50 MCG/1 ML 2 ML VIAL IV PRN (19:00)
--- NOTE | 2017-12-26 19:21 | Anesthesiology Progress Note ---
Anesthesia Post Op Note Date & Time Dec 26, 2017 at 19:21 Vital Signs Pain Intensity: 7 Vital Signs Past 12 Hours Date Time Temp Pulse Resp B/P (MAP) Pulse Ox O2 Delivery O2 Flow Rate FiO2 12/26/17 19:17 129/98 12/26/17 19:16 129/100 12/26/17 19:15 65 17 90 12/26/17 19:15 62 17 12/26/17 19:13 36.5 61 16 129/98 (106) 93 Room Air 12/26/17 19:10 72 18 97 12/26/17 19:10 69 18 12/26/17 19:09 152/90 12/26/17 19:08 67 14 12/26/17 19:08 72 14 100 12/26/17 19:07 143/106 12/26/17 19:06 64 10 12/26/17 19:06 59 10 100 12/26/17 19:05 77 10 99 12/26/17 19:05 55 10 12/26/17 19:00 55 14 12/26/17 19:00 54 14 163/104 100 12/26/17 18:57 162/104 12/26/17 18:56 148/107 12/26/17 18:55 13 12/26/17 18:55 64 13 12/26/17 18:51 36.2 77 23 155/99 (112) 100 Oxymask 10 12/26/17 18:50 15 12/26/17 18:50 67 15 155/99 12/26/17 16:42 36.6 85 18 150/89 (109) 96 Room Air 12/26/17 15:16 36.7 63 18 144/78 (100) 96 Room Air 12/26/17 07:38 36.5 93 18 144/94 (111) 95 Room Air 12/26/17 07:30 Room Air Notes Mental Status: alert / awake / arousable, participated in evaluation Nausea / Vomiting: adequately controlled Pain: adequately controlled Airway Patency, RR, SpO2: stable & adequate BP & HR: stable & adequate Hydration State: stable & adequate Anesthetic Complications: no major complications apparent
[2017-12-26] MEDS ORDERED: VANCOMYCIN TROUGH ONE ×2 (19:30→20:30)
[2017-12-26] MEDS: GABAPENTIN 1200MG LOADING DOSE PO SCH (20:13)
[2017-12-26] MEDS: THIAMINE HCL 100 MG TAB PO SCH (20:13)
[2017-12-26] MEDS: KETOROLAC TROMETHAMINE 30 MG/ML VIAL IV. SCH (20:17)
--- NOTE | 2017-12-26 21:59 | OPERATIVE REPORT ---
DATE OF OPERATION: 12/26/2017 PREOPERATIVE DIAGNOSES: 1. Septic left second metacarpophalangeal joint. 2. Cellulitis, left hand. POSTOPERATIVE DIAGNOSES: 1. Septic left second metacarpophalangeal joint. 2. Gouty tophus, second metacarpophalangeal joint. 3. Synovitis of the second metacarpophalangeal joint. 4. Tenosynovitis of the second extensor tendon. PROCEDURE: 1. Left second metacarpophalangeal joint arthrotomy. 2. Irrigation and debridement left second metacarpophalangeal joint. 3. Resection gouty tophus, left second metacarpophalangeal joint. 4. Synovectomy, left second metacarpophalangeal joint. 5. Tenosynovectomy of the second extensor tendon. SURGEON: Dr. Hayes. PL SQL DEVELOPER: None. ANESTHESIA: Local MAC. SPECIMENS: Aerobic, anaerobic, Gram stain. DRAINS: One-quarter inch iodoform gauze x1. COMPLICATIONS: None. BLOOD LOSS: 2 mL. PERTINENT HISTORY: This is a 57-year-old gentleman with a history of ongoing gout for the last several years. He developed redness, swelling, and limited range of motion of his left hand. He was seen to the medical service with IV antibiotics and an MRI, which demonstrated findings consistent with possible septic arthritis, left second metacarpophalangeal joint. The patient is scheduled for surgery as indicated. All potential risks, benefits, complications, alternatives, rehab, potential for incomplete relief of symptoms, need for history, DVT, PE, , persistent pain, swelling, scarring, weakness, neurovascular injury, wound complications, and need for repeat irrigation and debridement were discussed with the patient and his . They decided to proceed with the procedure as indicated. PROCEDURE IN DETAIL: The patient was taken to the operative suite, placed supine on the operating room table. After review of consent and identification of proper operative site, patient was sedated. Tourniquet was placed high on the left upper extremity over cast padding. Left upper extremity was then sterilely prepped and draped in the usual fashion, elevated and tourniquet inflated to 250 mmHg. There was no exsanguination performed due to the infection. The 15-blade scalpel was used to make an incision, centered over the metacarpophalangeal joint on the dorsal aspect of the left hand. The incision was deepened through the subcutaneous tissue. Meticulous hemostasis was achieved with electrocautery. Full thickness skin flaps were developed. The second extensor retinaculum was identified and then an arthrotomy incision was made on the radial aspect adjacent to the second extensor tendon on the ulnar aspect. The arthrotomy incision was deepened through the retinaculum and then capsule incision was performed. There was noted to be a scant amount of fluid within the joint with obvious gouty tophus within the joint. Next, rongeur was then used to resect some of the synovium with gouty tophus and fluid and this was then passed off as specimen for aerobic, anaerobic, Gram stain. A smooth freer was then placed in the joint to help distract it with gentle traction and then a synovectomy was performed of the joint with a rongeur with resection of the gouty tophus within the joint, which was pervasive. Once the gouty tophus was fully excised and resected, and synovectomy was complete, copious amounts of irrigation performed with sterile normal saline with bacitracin. Next, there was noted to be a tenosynovitis of the second extensor tendon. Tenosynovectomy was performed with a rongeur. Next, the wound was then further irrigated with a sterile normal saline and bacitracin until clear. Next, the arthrotomy incision was then closed with interrupted 3-0 mersilene sutures. Next, the skin was then closed using interrupted 4-0 nylon sutures and a one-quarter inch iodoform gauze drain was placed within the second metacarpophalangeal joint extending through the arthrotomy incision into the skin. Next, a sterile compressive dressing was applied after local anesthetic was injected around the incision site approximately 20 mL of 0.5% Marcaine plain. Next, the sterile compressive hand dressing was then overwrapped with an Danish wrap. The tourniquet was released, the patient was awakened and taken to recovery in stable condition. I attest to the content of the Intraoperative Record and any orders documented therein. Any exception s are noted below.
[2017-12-27] MEDS: KETOROLAC TROMETHAMINE 30 MG/ML VIAL IV. SCH ×3 (01:03→13:21)
[2017-12-27] MEDS: GABAPENTIN 600MG Q8H DOSE PO SCH ×2 (01:03→07:58)
[2017-12-27 03:40] VITALS: BP 115/77; PULSE 83; TEMP 36.6; O2SAT 96
[2017-12-27] MEDS: PIPERACILL/TAZOBAC IV 3.375 GM in D5W 100ML IV SCH ×3 (03:43→20:23)
[2017-12-27] MEDS: VANCOMYCIN IV 1,250 MG in SODIUM CHLORIDE 0.9% 250ML 250 ML IV SCH ×2 (07:58→17:49)
[2017-12-27 08:01] LABS: HEMATOCRIT 38.6 % (42-52); MEAN CELL VOLUME 98.2 fL (80-100); MEAN CORPUSCULAR HEMOGLOBIN 33.1 pg (25-34); MEAN CORPUSCULAR HGB CONC 33.7 g/dl (32-36); MEAN PLATELET VOLUME 9.4 fL (7.4-10.4); PLATELET COUNT 203 K/uL (130-400); RED CELL DISTRIBUTION WIDTH CV 13.2 % (11.5-14.5); RED CELL DISTRIBUTION WIDTH SD 47.5 fL (36.4-46.3); WHITE BLOOD COUNT 9.61 K/uL (4.8-10.8)
[2017-12-27 08:03] VITALS: BP 134/82; PULSE 86; TEMP 36.5; O2SAT 95
--- NOTE | 2017-12-27 08:12 | Orthopedic Progress Note ---
Orthopedic Progress Note Date of Service Dec 27, 2017. Subjective Post OP Day: 1 Reports: feeling well, complaints (mild hand pain this AM), Denies: chest pain, SOB, nausea / vomiting, light headedness Objective Dressings C/D/I. Cap refill <2 sec. Moving index finger a little better this AM. Sensation intact. Date Time Temp Pulse Resp B/P (MAP) Pulse Ox O2 Delivery O2 Flow Rate FiO2 12/27/17 08:03 36.5 86 18 134/82 (99) 95 Room Air 12/27/17 07:26 Room Air 12/27/17 03:40 36.6 83 16 115/77 (90) 96 Room Air 12/27/17 00:02 Nasal Cannula 2.0 12/26/17 23:43 36.7 102 16 108/67 (81) 91 Room Air 12/26/17 20:55 93 Nasal Cannula 2.0 12/26/17 20:40 34.7 56 16 149/87 (107) 84 Room Air 12/26/17 20:00 96 Room Air 12/26/17 20:00 Room Air 12/26/17 19:50 37.2 63 16 137/92 (107) 16 Room Air 12/26/17 19:33 66 96 12/26/17 19:33 66 12/26/17 19:30 130/102 12/26/17 19:28 52 16 91 12/26/17 19:28 54 16 12/26/17 19:26 143/92 12/26/17 19:23 12 12/26/17 19:23 63 12 12/26/17 19:21 132/83 12/26/17 19:18 64 13 95 12/26/17 19:18 61 13 12/26/17 19:17 129/98 12/26/17 19:16 129/100 12/26/17 19:15 65 17 90 12/26/17 19:15 62 17 12/26/17 19:13 36.5 61 16 129/98 (106) 93 Room Air 12/26/17 19:10 72 18 97 12/26/17 19:10 69 18 12/26/17 19:09 152/90 12/26/17 19:08 67 14 12/26/17 19:08 72 14 100 12/26/17 19:07 143/106 12/26/17 19:06 64 10 12/26/17 19:06 59 10 100 12/26/17 19:05 77 10 99 12/26/17 19:05 55 10 12/26/17 19:00 55 14 12/26/17 19:00 54 14 163/104 100 12/26/17 18:57 162/104 12/26/17 18:56 148/107 12/26/17 18:55 13 12/26/17 18:55 64 13 12/26/17 18:51 36.2 77 23 155/99 (112) 100 Oxymask 10 12/26/17 18:50 15 12/26/17 18:50 67 15 155/99 12/26/17 16:42 36.6 85 18 150/89 (109) 96 Room Air 12/26/17 15:16 36.7 63 18 144/78 (100) 96 Room Air Laboratory Results 24 Hours: Test 12/27/17 07:46 Hematocrit 38.6 % Hemoglobin 13.0 g/dL Assessment & Plan Assessment: POD 1 s/p Left 2nd MCPJ I&D Plan: Cx no organisms on Gram stain Blood cx NGTD Continue IV antibx Plan for dressing change tomorrow and remove packing. Inhouse Planning Pain Management: Toradol, Dilaudid, PO Tylenol, Oxy IR
[2017-12-27 08:37] LABS: CREATININE 1.1 mg/dl (0.60-1.40); POTASSIUM 3.8 mmol/L (3.5-5.1)
[2017-12-27] MEDS ORDERED: VANCOMYCIN IV 1,250 MG in SODIUM CHLORIDE 0.9% 250ML 250 ML IV SCH (10:00)
[2017-12-27 11:41] VITALS: BP 134/84; PULSE 84; TEMP 36.9; O2SAT 95
[2017-12-27] MEDS: OXYCODONE HCL IR 5 MG TAB (IMMEDIATE RELEASE) PO PRN ×3 (12:23→20:23)
[2017-12-27] MEDS: SODIUM CHLORIDE 0.9% 1000ML 1,000 ML IV SCH (12:30)
[2017-12-27 15:12] VITALS: BP 122/84; PULSE 90; TEMP 36.8; O2SAT 96
[2017-12-27 15:15] VITALS: O2SAT 96
[2017-12-27] MEDS: THIAMINE HCL 100 MG TAB PO SCH (16:38)
--- NOTE | 2017-12-27 16:47 | Progress Note ---
Medicine Progress Note Date & Time of Visit: Dec 27, 2017 at 16:46. Subjective seen sleeping but easily rousable states he feels fine overall left hand pain improving no pain on the forearm denies fever/chills, tremors, sweating, anxiety no other symptoms Objective Last 8 Hrs Date Time Temp Pulse Resp B/P (MAP) Pulse Ox O2 Delivery O2 Flow Rate FiO2 12/27/17 15:15 96 Room Air 12/27/17 15:12 36.8 90 18 122/84 (97) 96 Room Air 12/27/17 11:41 36.9 84 18 134/84 (101) 95 Room Air Physical Exam: General- oriented x 3, not in distress, speaks in sentences with no effort Head- atraumatic Eyes- anicteric ENT- oropharynx clear Neck- supple, no JVD Lungs- clear breath sounds bilaterally Heart- regular rhythm; no murmur, normal rate Abdomen- normal bowel sounds, soft, nontender Extremities- no pretibial edema, no calf tenderness Neuro- alert, oriented x 3; no gross focal deficits Skin- warm & dry Laboratory Results: Last 24 Hours Test 12/26/17 20:32 12/27/17 07:46 Vancomycin Level Trough 8.9 mcg/ml White Blood Count 9.61 K/uL Red Blood Count 3.93 M/uL Hemoglobin 13.0 g/dL Hematocrit 38.6 % Mean Corpuscular Volume 98.2 fL Mean Corpuscular Hemoglobin 33.1 pg Mean Corpuscular Hemoglobin Concent 33.7 g/dl RDW Standard Deviation 47.5 fL RDW Coefficient of Variation 13.2 % Platelet Count 203 K/uL Mean Platelet Volume 9.4 fL Erythrocyte Sedimentation Rate 14 mm/hr Sodium Level 141 mmol/L Potassium Level 3.8 mmol/L Chloride Level 108 mmol/L Carbon Dioxide Level 23 mmol/L Anion Gap 10.0 mmol/L Blood Urea Nitrogen 9 mg/dl Creatinine 1.10 mg/dl Est Creatinine Clear Calc Drug Dose 80.5 ml/min Estimated GFR () 85.3 Estimated GFR (Non- 73.6 BUN/Creatinine Ratio 7.8 Random Glucose 142 mg/dl Calcium Level 8.0 mg/dl C-Reactive Protein 2.54 mg/dl Date/Time Source Procedure Growth Status 12/26/17 18:00 Cellulitis Finger , Left 1st Gram Stain - Final Resulted 12/26/17 18:00 Cellulitis Finger , Left 1st Bacterial Culture - Preliminary NO GROWTH TO DATE. Resulted Assessment & Plan This is a 57 year old Male with PMH of HLD, HTN, GOUT, ETOH Abuse who presents to [facility] secondary to L hand/finger pain, redness and increased swelling x 3 days. Symptoms started on Friday12/22/17 with redness to Left 2nd MCP joint, pain and warmth. Seen in PCP office and ED [place] following day. 12/23/17 WBC 13.3 and on 12/24/17 was 11.2. Started on Keflex and Bactrim therapy. He has had 6 doses of Keflex 500 mg and 2 doses of Bactrim double strength with continued worsening of symptoms. In ED patient's WBC was noted to be normal at 8.7, H&H 15 and 43.4 respectively, uric acid 5.1, BUN 12, creatinine 1.3, sodium 138, potassium 4.0. Left upper extremity hand x-ray revealed soft tissue swelling. He is being admitted secondary to failed outpatient therapy as well as further evaluation and treatment of left hand cellulitis. Left hand/second MCP cellulitis, Septic Arthritis Possible Component of Gout -MRI reviewed - s/p I&D by Dr. Hayes 1. Septic left second metacarpophalangeal joint. 2. Gouty tophus, second metacarpophalangeal joint. 3. Synovitis of the second metacarpophalangeal joint. 4. Tenosynovitis of the second extensor tendon. - ff up cultures - Continue IV Vanco and Zosyn responding to antibiotics - ID consulted HTN -bp elevated most likely secondary to pain -does not take any oral antihypertensives in outpatient setting -Clonidine ordered PRN SBP >160 - BP improved HLD Last Chol Panel total chol 240, LDL 15, HDL 81, Trig 114 -dietary modifications, not on any oral meds in outpatient setting Gout -uric acid 5.1 -hx of gout attacks in R great toe -prn indomethacin EtOH abuse -AWSS scale per nursing -IV ativan 1g prn for withdrawl symptoms -gabapentin taper per protocol -on thiamine -no s/sx of withdrawl DVT prophylaxis resume Heparin when ok with Ortho Disposition anticipate d/c home when cleared by Ortho antibiotics per ID Current Inpatient Medications: Current Inpatient Medications Medications (Trade) Dose Ordered Sig/New Route Start Time Stop Time Status Last Admin Dose Admin Acetaminophen (Tylenol Tab) 650 mg Q4H PRN PO 12/25/17 10:15 01/24/18 10:14 Vancomycin HCl (Consult) 1 ea UD PRN N/A 12/25/17 10:30 01/24/18 10:29 Lorazepam (Ativan Inj) 1 mg ONE PRN IV 12/25/17 10:30 Miscellaneous (Iv Fluids Completed) 1 ea PRN PRN N/A 12/25/17 11:30 12/25/18 11:29 Lorazepam 0.5 mg/ Syringe 0.5 ml @ 0.5 mls/min Q4H PRN IV 12/25/17 13:15 01/24/18 13:14 12/26/17 13:42 0.5 MLS/MIN Miscellaneous Information (Consult) 1 ea UD PRN N/A 12/25/17 15:37 01/24/18 15:36 Hydromorphone HCl (Dilaudid Inj) 0.5 mg Q4H PRN IV 12/25/17 15:30 01/08/18 15:29 12/26/17 13:43 0.5 MG Sodium Chloride 1,000 ml @ 80 mls/hr [id number] IV 12/25/17 15:30 01/24/18 15:29 12/27/17 12:30 80 MLS/HR Piperacillin Sod/ Tazobactam Sod 3.375 gm/Dextrose 115 ml @ 28.75 mls/ hr Q8H IV 12/25/17 20:00 01/04/18 15:59 12/27/17 12:23 28.75 MLS/HR Clonidine HCl (Catapres Tab) 0.1 mg Q6H PRN PO 12/25/17 17:00 01/24/18 16:59 Thiamine HCl (Vitamin B-1 Tab) 100 mg Q24H PO 12/26/17 17:00 01/25/18 16:59 12/27/17 16:38 100 MG Gabapentin (Neurontin Tab) 1,200 mg TODAY@1715 PO 12/25/17 17:15 01/24/18 17:14 12/26/17 20:13 1,200 MG Gabapentin (Neurontin Tab) 600 mg Q12H PO 12/27/17 18:00 12/28/17 06:01 Gabapentin (Neurontin Tab) 600 mg Q24H PO 12/29/17 06:00 12/29/17 06:01 Oxycodone HCl (Roxicodone Immediate Rel Tab) 1-2 TABS FOR PAIN 1 TABLET ... Q4H PRN PO 12/26/17 18:45 01/09/18 18:44 12/27/17 16:39 10 MG Ondansetron HCl (Zofran Inj) 4 mg Q6H PRN IV 12/26/17 18:45 01/25/18 18:44 Vancomycin HCl 1250 mg/Sodium Chloride 275 ml @ 125 mls/hr Q10H IV 12/27/17 08:00 01/06/18 07:59 12/27/17 07:58 125 MLS/HR
[2017-12-27] MEDS: GABAPENTIN 1200MG LOADING DOSE PO SCH (17:10)
[2017-12-27] MEDS: HYDROmorphone INJ 0.5 MG/0.5 ML SYR IV PRN ×2 (17:51→21:48)
[2017-12-27] MEDS: GABAPENTIN 600MG Q12H DOSE PO SCH (17:51)
[2017-12-27 23:15] VITALS: BP 165/108; PULSE 87; TEMP 36.8; O2SAT 95
[2017-12-28] VITALS (8 sets, daily range): BP systolic 130–157; BP diastolic 83–97; PULSE 81–95; TEMP 36.6–37; O2SAT 93–97
[2017-12-28] MEDS: SODIUM CHLORIDE 0.9% 1000ML 1,000 ML IV SCH ×2 (00:27→13:00)
[2017-12-28] MEDS: OXYCODONE HCL IR 5 MG TAB (IMMEDIATE RELEASE) PO PRN ×5 (00:28→20:25)
[2017-12-28] MEDS: HYDROmorphone INJ 0.5 MG/0.5 ML SYR IV PRN ×2 (03:11→09:08)
[2017-12-28] MEDS: PIPERACILL/TAZOBAC IV 3.375 GM in D5W 100ML IV SCH ×2 (03:11→12:04)
[2017-12-28] MEDS: VANCOMYCIN IV 1,250 MG in SODIUM CHLORIDE 0.9% 250ML 250 ML IV SCH (03:12)
[2017-12-28] MEDS: GABAPENTIN 600MG Q12H DOSE PO SCH (05:57)
--- NOTE | 2017-12-28 08:51 | Orthopedic Progress Note ---
Orthopedic Progress Note Date of Service Dec 28, 2017. Subjective Post OP Day: 2 Reports: feeling well Additional Notes: Fingers feeling a little better but still having pain in and around the MCPJ. No new complaints. Objective Dressing removed. Packing taken out. Mild serous drainage. Mild erythema around the wound. Still with limited ROM of the index finger. Painful on palpation along the lateral aspect of the joint and some on the jimenez aspect. Moving all other fingers well. Denies wrist pain. Sensation intact. Wound redressed. Date Time Temp Pulse Resp B/P (MAP) Pulse Ox O2 Delivery O2 Flow Rate FiO2 12/28/17 03:55 36.6 84 17 146/95 (112) 94 Room Air 12/27/17 23:15 36.8 87 18 165/108 (127) 95 Room Air 12/27/17 23:05 Room Air 12/27/17 20:00 Room Air 12/27/17 15:15 96 Room Air 12/27/17 15:12 36.8 90 18 122/84 (97) 96 Room Air 12/27/17 11:41 36.9 84 18 134/84 (101) 95 Room Air Assessment & Plan Assessment: POD 2 s/p Left 2nd MCPJ I&D Plan: Cx no organisms on Gram stain - NGTD Blood cx NGTD Continue IV antibx Daily dressing changes. Inhouse Planning Pain Management: Toradol, Dilaudid, PO Tylenol, Oxy IR
[2017-12-28] MEDS ORDERED: BISACODYL 5 MG TABEC PO ONE (10:45)
[2017-12-28] MEDS ORDERED: BISACODYL 5 MG TABEC PO PRN (10:45)
[2017-12-28] MEDS ORDERED: DOCUSATE SODIUM 100 MG CAP PO ONE (10:45)
[2017-12-28] MEDS ORDERED: KETOROLAC TROMETHAMINE 30 MG/ML VIAL IV. PRN (12:00)
[2017-12-28] MEDS ORDERED: NURSING VERBAL MED ORDER ONE (12:00)
--- NOTE | 2017-12-28 12:45 | Pharmacy Progress Note ---
Pharmacy Abx Dose Short Note Date of Service Dec 28, 2017. Assessment & Plan Item Value Date Time Vancomycin Level Trough 12.8 mcg/ml 12/28/17 0322 Assessment 57 year old male receiving Vancomycin 1250mg IV Q10H for treatment of SSTI of L finger with possible septic arthritis. Day # 4 of antimicrobial therapy. Plan Vancomycin * Trough level of 12.8 mcg/mL is slightly subtherapeutic. * Change to 1500mg (~16mg/kg) IV every 10 hours * Estimated pharmacokinetics: ke=0.071, t1/2~10hours * Goal trough level for SSTI : ~15mcg/mL * Another trough level will be ordered if patient's therapy is continued or if there is a significant change in patient's condition Pharmacy will continue to follow and will adjust dose/frequency as necessary. Thank you.
--- NOTE | 2017-12-28 13:37 | PROGRESS NOTE ---
DATE: 12/28/2017 SUBJECTIVE: Mode is seen at bedside today. He is postop day 2. He notes pain in the MP joint region. OBJECTIVE: LEFT HAND EXAM: Left hand shows moderate erythema around the surgical incision. He has decreased range of motion, given discomfort in the joint. He has negative Kanavel signs. ASSESSMENT: Postop day 2 status post arthrotomy and drainage, left index finger MP joint with excision of gouty tophi. PLAN: Cultures today show no evidence of growth. Surgical findings did include significant gouty tophi. I feel this is more likely gouty arthropathy rather than infectious arthropathy. I do not see any further surgical indications at this point in time. I recommend treatment for gout. We will make an indomethacin around the clock rather than p.r.n. I would not anticipate further surgical needs. The patient may be discharged when stable, and follow up with Dr. Hayes as directed.
[2017-12-28] MEDS ORDERED: VANCOMYCIN IV 1,500 MG in SODIUM CHLORIDE 0.9% 500ML 500 ML IV SCH (14:00)
[2017-12-28] MEDS: INDOMETHACIN 25 MG CAP PO SCH (14:31)
--- NOTE | 2017-12-28 16:19 | Progress Note ---
Subjective Date of Service: Dec 28, 2017. Subjective Pt evaluation today including: conversation w/ patient, physical exam, lab review, review of studies, review of inpatient medication list Saw/examined the patient in room 384 He's doing well, hand pain improved Denies fevers/chills No nausea/vomiting. Problem List Medical Problems: (1) Cellulitis of left hand Status: Acute Review of Systems Constitutional: No fever, No chills Respiratory: No cough, No sputum, No shortness of breath Cardiac: No chest pain Abdomen: No pain, No nausea, No vomiting, No diarrhea Musculoskeletal: + joint pain Male : No dysuria, No urinary frequency Medications Current Inpatient Medications Medications (Trade) Dose Ordered Sig/New Route Start Time Stop Time Status Last Admin Dose Admin Acetaminophen (Tylenol Tab) 650 mg Q4H PRN PO 12/25/17 10:15 01/24/18 10:14 Vancomycin HCl (Consult) 1 ea UD PRN N/A 12/25/17 10:30 01/24/18 10:29 Lorazepam (Ativan Inj) 1 mg ONE PRN IV 12/25/17 10:30 Miscellaneous (Iv Fluids Completed) 1 ea PRN PRN N/A 12/25/17 11:30 12/25/18 11:29 Lorazepam 0.5 mg/ Syringe 0.5 ml @ 0.5 mls/min Q4H PRN IV 12/25/17 13:15 01/24/18 13:14 12/26/17 13:42 0.5 MLS/MIN Miscellaneous Information (Consult) 1 ea UD PRN N/A 12/25/17 15:37 01/24/18 15:36 Hydromorphone HCl (Dilaudid Inj) 0.5 mg Q4H PRN IV 12/25/17 15:30 01/08/18 15:29 12/28/17 09:08 0.5 MG Sodium Chloride 1,000 ml @ 80 mls/hr [id number] IV 12/25/17 15:30 01/24/18 15:29 12/28/17 13:00 80 MLS/HR Piperacillin Sod/ Tazobactam Sod 3.375 gm/Dextrose 115 ml @ 28.75 mls/ hr Q8H IV 12/25/17 20:00 01/04/18 15:59 12/28/17 12:04 28.75 MLS/HR Clonidine HCl (Catapres Tab) 0.1 mg Q6H PRN PO 12/25/17 17:00 01/24/18 16:59 Thiamine HCl (Vitamin B-1 Tab) 100 mg Q24H PO 12/26/17 17:00 01/25/18 16:59 12/27/17 16:38 100 MG Gabapentin (Neurontin Tab) 1,200 mg TODAY@1715 PO 12/25/17 17:15 01/24/18 17:14 12/27/17 17:10 1,200 MG Gabapentin (Neurontin Tab) 600 mg Q24H PO 12/29/17 06:00 12/29/17 06:01 Oxycodone HCl (Roxicodone Immediate Rel Tab) 1-2 TABS FOR PAIN 1 TABLET ... Q4H PRN PO 12/26/17 18:45 01/09/18 18:44 12/28/17 15:50 10 MG Ondansetron HCl (Zofran Inj) 4 mg Q6H PRN IV 12/26/17 18:45 01/25/18 18:44 Vancomycin HCl 1500 mg/Sodium Chloride 530 ml @ 200 mls/hr Q10H IV 12/28/17 14:00 01/03/18 23:59 12/28/17 14:17 200 MLS/HR Docusate Sodium (coLACE CAP) 100 mg BID PO 12/28/17 21:00 01/27/18 20:59 Bisacodyl (Dulcolax Tab) 5 mg DAILY PRN PO 12/28/17 10:45 01/27/18 10:44 Senna (Senokot Tab) 8.6 mg QAM PO 12/29/17 09:00 01/28/18 08:59 Indomethacin (Indocin Cap) 50 mg TIDM PO 12/28/17 17:45 01/27/18 17:44 12/28/17 14:31 50 MG Objective Vital Signs Date Time Temp Pulse Resp B/P (MAP) Pulse Ox O2 Delivery O2 Flow Rate FiO2 12/28/17 15:17 36.7 81 18 157/87 (110) 95 Room Air 12/28/17 11:25 37.0 95 19 146/89 (108) 93 Room Air 12/28/17 08:30 Room Air 12/28/17 07:04 36.8 93 18 130/83 (99) 95 Room Air 12/28/17 03:55 36.6 84 17 146/95 (112) 94 Room Air 12/27/17 23:15 36.8 87 18 165/108 (127) 95 Room Air 12/27/17 23:05 Room Air 12/27/17 20:00 Room Air Physical Exam General Appearance: no apparent distress Respiratory/Chest: lungs clear, normal breath sounds, no respiratory distress, no accessory muscle use Cardiovascular: regular rate, rhythm, no edema, no murmur Extremities: normal inspection, no pedal edema, + pertinent finding (L hand is wrapped) Neurologic/Psychiatric: no motor/sensory deficits, alert, normal mood/affect Laboratory Results Last 24 Hours Test 12/28/17 03:22 Vancomycin Level Trough 12.8 mcg/ml Assessment and Plan This is a 57 year old male with a past medical history of HTN, HLD, gout, EtOH abuse - presents with L hand/finger pain Left Hand/MCP Cellulitis Likely Gouty Arthropathy - s/p I&D by Dr. Hayes - cultures negative thus far - appreciate ortho input - likely gouty arthropathy - will stop abx. at this time - Indomethacin is now scheduled - will likely discharge home on 12/29 HTN - BP still elevated - will try Lisinopril HLD - outpatient follow-up with PCP EtOH abuse - thiamine - gabapentin protocol - Ativan PRN DVT ppx - SCDs, ambulation FULL CODE
[2017-12-28] MEDS ORDERED: LISINOPRIL 5 MG TAB PO ONE (16:30)
[2017-12-28] MEDS: THIAMINE HCL 100 MG TAB PO SCH (16:46)
[2017-12-28] MEDS: GABAPENTIN 1200MG LOADING DOSE PO SCH (16:46)
--- NOTE | 2017-12-28 16:49 | Medical Consult ---
Consultation Date of Consultation: Dec 28, 2017. Attending Physician: Rikki Harrington DO Reason for Consultation: Septic arthritis left hand History of Present Illness 57-year-old male with known history of gout, hyperlipidemia, and hypertension, was seen early in the week for swelling of his right 2nd MP joint. Was started on cephalexin, symptoms worsened with increasing pain, swelling, and erythema, was seen in the local emergency room and Bactrim was added, but redness and swelling spread and patient came to the emergency department and was admitted for further management. Imaging shows evidence of gout, and patient has now undergone surgical debridement. Operative Gram stain and cultures have been negative. Patient has received empiric vancomycin and Zosyn. Sedimentation rate and C reactive protein mildly elevated but now improving. Past Medical/Surgical History Medical Problems: (1) Cellulitis of left hand Status: Acute Medical Problems: (1) Alcohol abuse (2) Gout (3) HLD (hyperlipidemia) (4) HTN (hypertension) (5) Obesity (BMI 30.0-34.9) Surgical Problems: (1) History of decompression of both ulnar nerves (2) History of right inguinal hernia repair (3) History of tonsillectomy and adenoidectomy Family History FH: CAD (coronary artery disease) FATHER, BROTHER, , Age:50's - 60 ( of [place]) FH: cancer FATHER, Social History Smoking Status: Never Smoker Smokeless Tobacco Use: No Alcohol Use: heavy (5-6 12 oz bottles of marck lite daily) Drug Use: none Marital Status: 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) Allergies Coded Allergies: No Known Allergies (Verified , 12/25/17) Current Inpatient Medications Current Inpatient Medications Medications (Trade) Dose Ordered Sig/New Route Start Time Stop Time Status Last Admin Dose Admin Acetaminophen (Tylenol Tab) 650 mg Q4H PRN PO 12/25/17 10:15 01/24/18 10:14 Lorazepam (Ativan Inj) 1 mg ONE PRN IV 12/25/17 10:30 Miscellaneous (Iv Fluids Completed) 1 ea PRN PRN N/A 12/25/17 11:30 12/25/18 11:29 Lorazepam 0.5 mg/ Syringe 0.5 ml @ 0.5 mls/min Q4H PRN IV 12/25/17 13:15 01/24/18 13:14 12/26/17 13:42 0.5 MLS/MIN Hydromorphone HCl (Dilaudid Inj) 0.5 mg Q4H PRN IV 12/25/17 15:30 01/08/18 15:29 12/28/17 09:08 0.5 MG Sodium Chloride 1,000 ml @ 80 mls/hr [id number] IV 12/25/17 15:30 01/24/18 15:29 12/28/17 13:00 80 MLS/HR Thiamine HCl (Vitamin B-1 Tab) 100 mg Q24H PO 12/26/17 17:00 01/25/18 16:59 12/27/17 16:38 100 MG Gabapentin (Neurontin Tab) 1,200 mg TODAY@1715 PO 12/25/17 17:15 01/24/18 17:14 12/27/17 17:10 1,200 MG Gabapentin (Neurontin Tab) 600 mg Q24H PO 12/29/17 06:00 12/29/17 06:01 Oxycodone HCl (Roxicodone Immediate Rel Tab) 1-2 TABS FOR PAIN 1 TABLET ... Q4H PRN PO 12/26/17 18:45 01/09/18 18:44 12/28/17 15:50 10 MG Ondansetron HCl (Zofran Inj) 4 mg Q6H PRN IV 12/26/17 18:45 01/25/18 18:44 Docusate Sodium (coLACE CAP) 100 mg BID PO 12/28/17 21:00 01/27/18 20:59 Bisacodyl (Dulcolax Tab) 5 mg DAILY PRN PO 12/28/17 10:45 01/27/18 10:44 Senna (Senokot Tab) 8.6 mg QAM PO 12/29/17 09:00 01/28/18 08:59 Indomethacin (Indocin Cap) 50 mg TIDM PO 12/28/17 17:45 01/27/18 17:44 12/28/17 14:31 50 MG Lisinopril (Zestril Tab) 5 mg QAM PO 12/29/17 09:00 01/28/18 08:59 Review of Systems Constitutional: No fever, No chills Eyes: No problem reported ENT: No problem reported Respiratory: No problem reported Cardiovascular: No problem reported Abdomen: No problem reported Musculoskeletal: + joint pain, + swelling, + problem reported Genitourinary - Male: No problem reported Neurologic: No problem reported Psychiatric: No problem reported Endocrine: No problem reported Hematologic / Lymphatic: No problem reported Integumentary: + new/changing skin lesions Allergic / Immunologic: No problem reported Physical Exam Date Time Temp Pulse Resp B/P (MAP) Pulse Ox O2 Delivery O2 Flow Rate FiO2 12/28/17 15:45 95 Room Air 12/28/17 15:17 36.7 81 18 157/87 (110) 95 Room Air 12/28/17 11:25 37.0 95 19 146/89 (108) 93 Room Air 12/28/17 08:30 Room Air 12/28/17 07:04 36.8 93 18 130/83 (99) 95 Room Air 12/28/17 03:55 36.6 84 17 146/95 (112) 94 Room Air 12/27/17 23:15 36.8 87 18 165/108 (127) 95 Room Air 12/27/17 23:05 Room Air 12/27/17 20:00 Room Air General Appearance: WD/WN, no apparent distress Head: normocephalic, atraumatic Eyes: normal inspection, EOMI, sclerae normal ENT: normal ENT inspection, hearing grossly normal, pharynx normal Neck: supple, no adenopathy, thyroid normal, trachea midline Respiratory/Chest: chest non-tender, lungs clear, normal breath sounds, no respiratory distress Cardiovascular: regular rate, rhythm, no gallop, no murmur Abdomen/GI: normal bowel sounds, non tender, soft, no organomegaly Back: normal inspection, no CVA tenderness Extremities/Musculoskelatal: no calf tenderness, normal capillary refill, + pertinent finding ( left hand dressing intact) Neurologic/Psych: alert, oriented x 3 Skin: normal color, no rash, + pertinent finding ( improving erythema and swelling left hand) Lymphatic: no adenopathy Laboratory Results RUN DATE: 12/28/17 [facility] LAB PAGE 1 RUN TIME: 3887 Specimen Inquiry PATIENT: RAUDEL CHANG LOC: [facility]L U # : [id number] AGE/SX: 57/M ROOM: [facility] REG : 12/26/[address]: Rikki Harrington DO : 1960 BED: 2 DIS : STATUS: ADM IN TLOC: SPEC #: [id number] IVETTE: 12/26/17 STATUS: RES REQ #: [id number] RECD: 12/26/[address]: Nam Valle MD SOURCE: CELLULITIS ENTR: 12/26/[address]: Francesco Hayes DYolanda SPDESC: FINGER L1 No Doctor, Marry Yoder PA-C ORDERED: AER/TANVIR CULTSMR Procedure Result Verified Site GRAM STAIN Final 12/27/17 RESULT RARE WBCs SEEN NO ORGANISMS SEEN OR AER/TANVIR CULT Preliminary 12/28/17 NO GROWTH TO DATE. Last 24 Hours Test 12/28/17 03:22 Vancomycin Level Trough 12.8 mcg/ml Patient Name: RAUDEL CHANG Unit Number: [id number] Dictated: 12/25/172143 Transcribed: 12/25/172143 ARG Printed Date/Time: [~ rep prt dt]/[~ rep prt tm] [~ rep ct labl] - [~ rep ct ivnm] [facility] [place] [place] [address] Dictated: 12/25/172143 Transcribed: 12/25/172143 ARG Printed Date/Time: [~ rep prt dt]/[~ rep prt tm] [~ rep ct labl] - [~ rep ct ivnm] [~ rep ct add3]] MRI OF THE LEFT HAND WITHOUT A WITH CONTRAST CLINICAL HISTORY: L 2nd MCP joint edema, erythema. COMPARISON STUDY: Conventional radiographic study dated 12/25/2017 FINDINGS: Imaging was performed in the sagittal, axial, and coronal planes, before and after the administration of 9 cc of intravenous Gadavist. There are no areas of marrow edema to indicate osteomyelitis. There are no abnormal soft tissue masses. There is a small joint effusion at the level of the second metacarpal phalangeal joint. There is mild surrounding soft tissue edema. Postcontrast images reveal prominent synovial enhancement at this level. There are no fluid collections to indicate a drainable abscess. IMPRESSION: 1. No evidence of osteomyelitis 2. No evidence of a drainable abscess 3. Small joint effusion at the level of the second metacarpal phalangeal joint. Surrounding soft tissue edema. Extensive postcontrast synovial enhancement at this level. Given the MRI appearance and clinical presentation, the findings are suspicious for a septic arthritis. It should be noted that a noninfectious monoarthropathy could potentially appear similar. Electronically signed by: Timur Farah M.D. 12/25/2017 9:54 PM Dictated Date/Time: 12/25/2017 9:44 PM The status of this report is Signed. Draft = Not yet reviewed or approved by Radiologist. Signed = Reviewed and approved by Radiologist. <AttendingPhy>Nam Valle MD</AttendingPhy> <FamilyPhy>No Doctor, Assigned</FamilyPhy> <PrimaryPhy>No Doctor, Assigned</PrimaryPhy> <UnitNumber> [id number]</UnitNumber> <VisitNumber>[id number]</VisitNumber> <PatientName> RAUDEL CHANG</PatientName> <DateOfBirth>1960</DateOfBirth> <Location>[facility] </Location> <ServiceDate>12/25/17</ServiceDate> <MNE>ESINDI</MNE> <OrderingPhy> Dewayne Morillo PA-C</OrderingPhy> <OrderingPhyMNE>f rep ord dr jackson</ OrderingPhyMNE> <DictatingPhyMNE>f rep dict dr jackson</DictatingPhyMNE> <CCListMNE> f rep ct renetta</CCListMNE> <AdmittingPhyMNE>f pt admit dr jackson</AdmittingPhyMNE> < AttendingPhyMNE>f pt attend dr jackson</AttendingPhyMNE> <ConsultingPhyMNE>f pt consult dr jackson</ConsultingPhyMNE> <FamilyPhyMNE>f pt fam dr jackson</FamilyPhyMNE> <OtherPhyMNE>f pt other dr jackson</OtherPhyMNE> < PrimaryPhyMNE>f pt prim care dr jackson</PrimaryPhyMNE> <ReferringPhyMNE>f pt referring dr jackson</ReferringPhyMNE> Assessment & Plan 57-year-old male with history of gout now with acute pain and swelling of left hand now status post surgical debridement with finding of probable gouty arthritis. Operative cultures have been negative, Gram stain negative, most consistent with acute gouty flare. Patient to be managed with anti- inflammatories, antibiotics to be held this time. Will follow.
[2017-12-28] MEDS: DOCUSATE SODIUM 100 MG CAP PO SCH (20:24)
[2017-12-29] MEDS: OXYCODONE HCL IR 5 MG TAB (IMMEDIATE RELEASE) PO PRN ×3 (01:09→10:51)
[2017-12-29] MEDS: SODIUM CHLORIDE 0.9% 1000ML 1,000 ML IV SCH (02:09)
[2017-12-29] MEDS ORDERED: GABAPENTIN 600MG X1 DOSE PO SCH (06:00)
--- NOTE | 2017-12-29 06:14 | Consultant Recommendations ---
Pig Handler Recommendations Date of Service Dec 29, 2017. Pig Handler Recommendations Keep dressing clean and dry. You may shower if you keep a waterproof covering over the left hand. Change your dressing daily. Active range of motion of the fingers regularly. ACTIVITY RECOMMENDATIONS: * Avoid lifting anything heavier than a medium water glass until your first post operative visit. SPECIAL CARE INSTRUCTIONS: * Some drainage onto the dressing may occur. This is normal. * If the bandage feels excessively tight, you may loosen the elastic bandage. Then call the physician's office for further instructions. * If possible, keep your hand elevated above the level of your heart for the first 2 post operative days. You may use a sling if necessary. * You should move your fingers regularly (50-100 motions per hour) unless otherwise instructed. SPECIAL PRECAUTIONS: * If you notice increased drainage, fever over 101 degrees F. or severe, unremitting pain, call your physician/office at . * You may have been prescribed pain medication. If you experience nausea and/or skin rash, discontinue this medication and contact our office for an alternative medication. FOLLOW UP VISIT: If appointment is not already scheduled: Please call [facility] to make a follow-up appointment with Dr Hayes in 7-10 days from the day of your surgery at .
[2017-12-29 06:22] LABS: HEMOGLOBIN 13.4 g/dL (14.0-18.0); MEAN CELL VOLUME 99.5 fL (80-100); MEAN CORPUSCULAR HEMOGLOBIN 32.5 pg (25-34); MEAN CORPUSCULAR HGB CONC 32.7 g/dl (32-36); MEAN PLATELET VOLUME 9.6 fL (7.4-10.4); PLATELET COUNT 238 K/uL (130-400); RED CELL DISTRIBUTION WIDTH SD 47.1 fL (36.4-46.3); WHITE BLOOD COUNT 7.57 K/uL (4.8-10.8)
[2017-12-29 06:56] LABS: CREATININE 0.99 mg/dl (0.60-1.40)
[2017-12-29 06:57] LABS: CALCIUM 7.9 mg/dl (8.5-10.1); POTASSIUM 3.9 mmol/L (3.5-5.1)
--- NOTE | 2017-12-29 06:57 | Orthopedic Progress Note ---
Orthopedic Progress Note Date of Service Dec 29, 2017. Subjective Post OP Day: 3 Reports: feeling well, Denies: complaints Objective N/V intact, A&O x3 Dressing removed. Wound looking better. Less erythema. ROM a little better this AM. Date Time Temp Pulse Resp B/P (MAP) Pulse Ox O2 Delivery O2 Flow Rate FiO2 12/28/17 23:30 97 Room Air 2.0 12/28/17 23:02 36.8 90 18 134/97 (109) 97 Room Air 12/28/17 18:55 36.7 92 18 153/91 (111) 96 Room Air 12/28/17 15:45 95 Room Air 12/28/17 15:17 36.7 81 18 157/87 (110) 95 Room Air 12/28/17 11:25 37.0 95 19 146/89 (108) 93 Room Air 12/28/17 08:30 Room Air 12/28/17 07:04 36.8 93 18 130/83 (99) 95 Room Air Laboratory Results 24 Hours: Test 12/29/17 06:00 Hematocrit 41.0 % Hemoglobin 13.4 g/dL Assessment & Plan Assessment: POD 3 s/p Left 2nd MCPJ I&D Plan: Cx no organisms on Gram stain - No growth final Continue IV antibx Daily dressing changes. Plan for po antibiotics and Indocin TID follow up with DR Hayes in 7-10 days. Instructions left in EMR Ortho will sign off at this time. Inhouse Planning Pain Management: Toradol, Dilaudid, PO Tylenol, Oxy IR
[2017-12-29 08:27] VITALS: BP 133/84; PULSE 73; TEMP 36.8; O2SAT 98
[2017-12-29] MEDS ORDERED: LISINOPRIL 5 MG TAB PO SCH (09:00)
[2017-12-29] MEDS ORDERED: SENNA 8.6 MG TAB PO SCH (09:00)
[2017-12-29] MEDS: DOCUSATE SODIUM 100 MG CAP PO SCH (09:18)
[2017-12-29] MEDS: INDOMETHACIN 25 MG CAP PO SCH ×2 (09:19→12:31)
--- NOTE | 2017-12-29 10:02 | Progress Note ---
Subjective Date of Service: Dec 29, 2017. Subjective Pt evaluation today including: conversation w/ patient, physical exam, lab review, review of studies, review of inpatient medication list Saw/examined the patient in room 384 He's doing well, hand is doing well, with mild tenderness Denies fevers/chills No other issues to note Eager to get home Problem List Medical Problems: (1) Cellulitis of left hand Status: Acute Review of Systems Constitutional: No fever, No chills Respiratory: No cough, No sputum, No shortness of breath Cardiac: No chest pain Abdomen: No pain, No nausea, No vomiting, No diarrhea Medications Current Inpatient Medications Medications (Trade) Dose Ordered Sig/New Route Start Time Stop Time Status Last Admin Dose Admin Acetaminophen (Tylenol Tab) 650 mg Q4H PRN PO 12/25/17 10:15 01/24/18 10:14 12/29/17 09:23 650 MG Lorazepam (Ativan Inj) 1 mg ONE PRN IV 12/25/17 10:30 Miscellaneous (Iv Fluids Completed) 1 ea PRN PRN N/A 12/25/17 11:30 12/25/18 11:29 Lorazepam 0.5 mg/ Syringe 0.5 ml @ 0.5 mls/min Q4H PRN IV 12/25/17 13:15 01/24/18 13:14 12/26/17 13:42 0.5 MLS/MIN Hydromorphone HCl (Dilaudid Inj) 0.5 mg Q4H PRN IV 12/25/17 15:30 01/08/18 15:29 12/28/17 09:08 0.5 MG Sodium Chloride 1,000 ml @ 80 mls/hr [id number] IV 12/25/17 15:30 01/24/18 15:29 12/29/17 02:09 80 MLS/HR Thiamine HCl (Vitamin B-1 Tab) 100 mg Q24H PO 12/26/17 17:00 01/25/18 16:59 12/28/17 16:46 100 MG Gabapentin (Neurontin Tab) 1,200 mg TODAY@1715 PO 12/25/17 17:15 01/24/18 17:14 12/28/17 16:46 1,200 MG Oxycodone HCl (Roxicodone Immediate Rel Tab) 1-2 TABS FOR PAIN 1 TABLET ... Q4H PRN PO 12/26/17 18:45 01/09/18 18:44 12/29/17 06:29 10 MG Ondansetron HCl (Zofran Inj) 4 mg Q6H PRN IV 12/26/17 18:45 01/25/18 18:44 Docusate Sodium (coLACE CAP) 100 mg BID PO 12/28/17 21:00 01/27/18 20:59 12/29/17 09:18 100 MG Bisacodyl (Dulcolax Tab) 5 mg DAILY PRN PO 12/28/17 10:45 01/27/18 10:44 12/29/17 01:09 5 MG Senna (Senokot Tab) 8.6 mg QAM PO 12/29/17 09:00 01/28/18 08:59 12/29/17 09:18 8.6 MG Indomethacin (Indocin Cap) 50 mg TIDM PO 12/28/17 17:45 01/27/18 17:44 12/29/17 09:19 50 MG Lisinopril (Zestril Tab) 5 mg QAM PO 12/29/17 09:00 01/28/18 08:59 12/29/17 09:19 5 MG Objective Vital Signs Date Time Temp Pulse Resp B/P (MAP) Pulse Ox O2 Delivery O2 Flow Rate FiO2 12/29/17 08:27 36.8 73 18 133/84 (100) 98 Room Air 12/29/17 07:20 Room Air 12/28/17 23:30 97 Room Air 2.0 12/28/17 23:02 36.8 90 18 134/97 (109) 97 Room Air 12/28/17 18:55 36.7 92 18 153/91 (111) 96 Room Air 12/28/17 15:45 95 Room Air 12/28/17 15:17 36.7 81 18 157/87 (110) 95 Room Air 12/28/17 11:25 37.0 95 19 146/89 (108) 93 Room Air Physical Exam General Appearance: no apparent distress Respiratory/Chest: chest non-tender, lungs clear, normal breath sounds, no respiratory distress, no accessory muscle use Cardiovascular: regular rate, rhythm, no edema, no murmur Extremities: normal inspection, no pedal edema, + pertinent finding (L hand is dressed/wrapped) Neurologic/Psychiatric: no motor/sensory deficits, alert, normal mood/affect Laboratory Results Last 24 Hours Test 12/29/17 06:00 White Blood Count 7.57 K/uL Red Blood Count 4.12 M/uL Hemoglobin 13.4 g/dL Hematocrit 41.0 % Mean Corpuscular Volume 99.5 fL Mean Corpuscular Hemoglobin 32.5 pg Mean Corpuscular Hemoglobin Concent 32.7 g/dl RDW Standard Deviation 47.1 fL RDW Coefficient of Variation 13.0 % Platelet Count 238 K/uL Mean Platelet Volume 9.6 fL Sodium Level 141 mmol/L Potassium Level 3.9 mmol/L Chloride Level 105 mmol/L Carbon Dioxide Level 30 mmol/L Anion Gap 6.0 mmol/L Blood Urea Nitrogen 9 mg/dl Creatinine 0.99 mg/dl Est Creatinine Clear Calc Drug Dose 89.5 ml/min Estimated GFR () 96.9 Estimated GFR (Non- 83.6 BUN/Creatinine Ratio 9.5 Random Glucose 92 mg/dl Calcium Level 7.9 mg/dl Magnesium Level 2.1 mg/dl Assessment and Plan This is a 57 year old male with a past medical history of HTN, HLD, gout, EtOH abuse - presents with L hand/finger pain Left Hand/MCP Cellulitis Likely Gouty Arthropathy 12/29 - appreciate ortho input - will d/c with Cipro and Clinda; though unlikely infectious - will also d/c with Indomethacin for likely gouty arthropathy 12/28 - s/p I&D by Dr. Hayes - cultures negative thus far - appreciate ortho input - likely gouty arthropathy - will stop abx. at this time - Indomethacin is now scheduled - will likely discharge home on 12/29 HTN - BP still elevated - will try Lisinopril HLD - outpatient follow-up with PCP EtOH abuse - thiamine - gabapentin protocol - Ativan PRN DVT ppx - SCDs, ambulation FULL CODE
[2017-12-29] MEDS ORDERED: CIPR-255 PO (10:14)
[2017-12-29] MEDS ORDERED: CLC150 PO (10:14)
[2017-12-29] MEDS ORDERED: SENN-61 PO (10:14)
[2017-12-29] MEDS ORDERED: RXC5 PO (10:14)
[2017-12-29] MEDS ORDERED: THIA100T10 PO (10:14)
[2017-12-29] MEDS ORDERED: LISI-730 PO (10:14)
[2017-12-29] MEDS ORDERED: INDO1CAP34 PO (10:14)
--- NOTE | 2017-12-29 10:17 | Discharge Instructions ---
Discharge Instructions Date of Service Dec 29, 2017. Admission Reason for Admission: Cellulitis Of Left Hand Discharge Discharge Diagnosis / Problem: Infection or Gout of L Hand Discharge Goals Goal(s): Decrease discomfort, Improve function, Diagnostic testing, Therapeutic intervention Activity Recommendations Activity Limitations: resume your previous activity . Instructions / Follow-Up Instructions / Follow-Up Please follow-up with Dr. Hernández in [place] on January 01 at 12: 45PM * You will be on Clindamycin and Cipro for your hand; for possible infection * You will be on Indomethacin for likely gout * Please see your primary care physician, you should be on allopurinol after your gout flare-up to prevent gout attacks * You will be started on a low dose Lisinopril because of your high blood pressure Please call [facility] to make a follow-up appointment with Dr Hayes in 7-10 days from the day of your surgery at Current Hospital Diet Patient's current hospital diet: AHA Diet (Heart Healthy) Discharge Diet Recommended Diet: AHA Diet (Heart Healthy) Procedures Procedures Performed: Left second metacarpophalangeal joint arthrotomy, synovectomy 2nd MCP joint, irrigation and debridement 2nd MCP joint, 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 Who to Call and When: Medical Emergencies: If at any time you feel your situation is an emergency, please call 911 immediately. . Non-Emergent Contact Non-Emergency issues call your: Primary Care Provider, Surgeon . . "Provider Documentation" section prepared by Rikki Harrington. . Report Manager Recommendations Report Manager Recommendations: Keep dressing clean and dry. You may shower if you keep a waterproof covering over the left hand. Change your dressing daily. Active range of motion of the fingers regularly. ACTIVITY RECOMMENDATIONS: * Avoid lifting anything heavier than a medium water glass until your first post operative visit. SPECIAL CARE INSTRUCTIONS: * Some drainage onto the dressing may occur. This is normal. * If the bandage feels excessively tight, you may loosen the elastic bandage. Then call the physician's office for further instructions. * If possible, keep your hand elevated above the level of your heart for the first 2 post operative days. You may use a sling if necessary. * You should move your fingers regularly (50-100 motions per hour) unless otherwise instructed. SPECIAL PRECAUTIONS: * If you notice increased drainage, fever over 101 degrees F. or severe, unremitting pain, call your physician/office at . * You may have been prescribed pain medication. If you experience nausea and/or skin rash, discontinue this medication and contact our office for an alternative medication. FOLLOW UP VISIT: If appointment is not already scheduled: Please call [facility] to make a follow-up appointment with Dr Hayes in 7-10 days from the day of your surgery at .
--- NOTE | 2017-12-29 10:18 | Discharge Summary ---
Discharge Summary Date of Service Dec 29, 2017. Discharge Summary Admission Date: Dec 26, 2017 at 19:05 Discharge Date: Dec 29, 2017 Discharge Disposition: Home Principal Diagnosis: Left Hand/MCP Cellulitis Likely Gouty Arthropathy HTN HLD EtOH abuse Medication Reconciliation New Medications: Ciprofloxacin Hcl (Cipro) 500 Mg Tab 500 MG PO BID for 7 Days, #14 TAB Clindamycin HCl (Clindamycin HCl) 150 Mg Cap 300 MG PO Q8 for 7 Days, #42 CAP Lisinopril (Lisinopril) 5 Mg Tab 5 MG PO QAM for 30 Days, #30 TAB Oxycodone HCl (Oxycodone HCl) 5 Mg Tab 5 MG PO Q6 PRN for Pain for 5 Days, #20 TAB Senna (Senokot) 8.6 Mg Tab 8.6 MG PO QAM for 30 Days, #30 TAB Thiamine Hcl (Vitamin B-1) 100 Mg Tab 100 MG PO Q24H for 30 Days, #30 TAB Changed Medications: Indomethacin (Indomethacin) 25 Mg Cap 25 MG PO TID for 7 Days, #21 CAP (Changed from: 50 MG; Removed Reason) Discontinued Medications: Cephalexin Monohydrate (Keflex) 500 Mg Cap 500 MG PO TID X 10 DAYS. STARTED 12/23/17. Sulfa/Trimethoprim (Bactrim Ds 800MG/160MG) Tab 1 TAB PO BID X 10 DAYS. STARTED 12/24/17. Admission Information HPI (per Admitting provider): This is a 57 year old Male with PMH of HLD, HTN, GOUT, ETOH Abuse who presents to [facility] secondary to L hand/finger pain, redness and increased swelling x 3 days. Symptoms started on Friday12/22/17 with redness to Left 2nd MCP joint, pain and warmth. Was unable to get into PCP therefore took indomethacin, "thought it was gout," but this did not help. On 12/23/17 saw PCP and dx with cellulitis, placed on Keflex. WBC at this time was 13.3. Due to worsening of symptoms he presented to [place] ED for further evaluation on 12/24/17. At that time WBC 11.2, left hand x-ray performed negative for acute abnormality. He was additionally placed on Bactrim for MRSA coverage and discharged home. Today he notes increased swelling, increased erythema, warmth, pain, decreased range of motion of left second digit. He has taken 6 doses of Keflex 500 mg, 2 doses of double strength Bactrim. He has not taking anything [id number] for pain except prescribed indomethacin with no relief. Current pain rated 6 out of 10; however pain this morning was 9/10. He admits to chills last evening but no documented fever and nausea. Currently denies sweats, dizziness, lightheadedness, chest pain, shortness of breath, palpitations, nausea, vomiting , emesis, diarrhea, change in bowel or bladder habits. In ED patient's WBC was noted to be normal at 8.7, H&H 15 and 43.4 respectively, uric acid 5.1, ESR 22, CRP 5.32, BUN 12, creatinine 1.3, sodium 138, potassium 4.0. Left upper extremity hand x-ray revealed soft tissue swelling. He is being admitted secondary to failed outpatient therapy as well as further evaluation and treatment of left hand cellulitis. Physical Exam (per Admitting): General Appearance: WD/WN (Male, Sitting up in bed, conversing at ease), no apparent distress Head: normocephalic, atraumatic Eyes: normal inspection, PERRL, EOMI, sclerae normal ENT: normal ENT inspection, hearing grossly normal, pharynx normal, + pertinent finding (Mucous membranes moist) Neck: supple, no adenopathy, thyroid normal, no JVD Respiratory/Chest: chest non-tender, lungs clear, normal breath sounds, no respiratory distress, no accessory muscle use Cardiovascular: regular rate, rhythm, no edema, no gallop, no murmur, normal peripheral pulses Abdomen/GI: normal bowel sounds, non tender, soft, no organomegaly Back: normal inspection, no muscle spasm, normal range of motion Extremities/Musculoskelatal: + pertinent finding (Positive erythema and edema on dorsal aspect of left second MCP extending proximally above wrist, well -demarcated, good R OM of left second DIP and PIP; however reduced ROM significantly to MCP. Good AROM of left wrist, no proximal lymphadenopathy, no obvious point of insertion/abraison) Neurologic/Psych: alert, normal mood/affect, oriented x 3 Skin: normal color, warm/dry Lymphatic: no adenopathy Hospital Course This is a 57 year old male with a past medical history of HTN, HLD, gout, EtOH abuse - presents with L hand/finger pain Left Hand/MCP Cellulitis Likely Gouty Arthropathy 12/29 - appreciate ortho input - will d/c with Cipro and Clinda; though unlikely infectious - will also d/c with Indomethacin for likely gouty arthropathy 12/28 - s/p I&D by Dr. Hayes - cultures negative thus far - appreciate ortho input - likely gouty arthropathy - will stop abx. at this time - Indomethacin is now scheduled - will likely discharge home on 12/29 HTN - BP still elevated - will try Lisinopril HLD - outpatient follow-up with PCP EtOH abuse - thiamine - gabapentin protocol - Ativan PRN DVT ppx - SCDs, ambulation FULL CODE Total time spent on discharge = 45 minutes This includes examination of the patient, discharge planning, medication reconciliation, and communication with other providers. Discharge Instructions Please follow-up with Dr. Hernández in [place] on January 01 at 12: 45PM * You will be on Clindamycin and Cipro for your hand; for possible infection * You will be on Indomethacin for likely gout * Please see your primary care physician, you should be on allopurinol after your gout flare-up to prevent gout attacks * You will be started on a low dose Lisinopril because of your high blood pressure Please call [facility] to make a follow-up appointment with Dr Hayes in 7-10 days from the day of your surgery at
--- NOTE | 2017-12-29 10:30 | Anesthesiology Progress Note ---
Anesthesia Post Op Note Date & Time Dec 29, 2017 at 10:30 Vital Signs Pain Intensity: 7.0 Vital Signs Past 12 Hours Date Time Temp Pulse Resp B/P (MAP) Pulse Ox O2 Delivery O2 Flow Rate FiO2 12/29/17 08:27 36.8 73 18 133/84 (100) 98 Room Air 12/29/17 07:20 Room Air 12/28/17 23:30 97 Room Air 2.0 12/28/17 23:02 36.8 90 18 134/97 (109) 97 Room Air Notes Mental Status: alert / awake / arousable, participated in evaluation Pt Amnestic to Procedure: Yes Nausea / Vomiting: adequately controlled Pain: adequately controlled Airway Patency, RR, SpO2: stable & adequate BP & HR: stable & adequate Hydration State: stable & adequate Anesthetic Complications: no major complications apparent
[2017-12-29 11:20] VITALS: BP 133/84; PULSE 73; TEMP 36.8; O2SAT 98
== END 2017-12-29 13:17 | disposition home or self-care (01) | DRG 988 ==
LOC: C.EDB 08:17 → C.MSN 10:18 → CANRESERV 10:32 → ENRESERV 10:32 → EDBEDREQ 10:51 → ENRESERV 11:11 → OBSVTOIN 12-26 19:05
PROVIDERS: ADMIT Internal Medicine; ATTEND Family Medicine
PROC: 0RBV0ZZ Excision of Left Metacarpophalangeal Joint, Open Approach (ICD-10-PCS; principal; 2017-12-26 13:00)
DX: L03.114 Cellulitis of left upper limb (principal); M00.9 Pyogenic arthritis, unspecified; M1A.9XX1 Chronic gout, unspecified, with tophus (tophi); M65.9 Synovitis and tenosynovitis, unspecified; I10 Essential (primary) hypertension; E78.5 Hyperlipidemia, unspecified; F10.10 Alcohol abuse, uncomplicated; E66.9 Obesity, unspecified; Z68.30 Body mass index [BMI] 30.0-30.9, adult; Z82.49 Family history of ischemic heart disease and other diseases of the circulatory system